=== PATIENT | male | born 1945 | race Caucasian/White ===

== ENCOUNTER → 2016-10-13 | Day surgery (SDC) | payer MEDICARE, OTHER ==
[~2016-10-13] VITALS: Ht 172.7 cm; Wt 88.5 kg
[~2016-10-13] MED LIST: ACTOS45 MG PO; ADVAIR 500/501 EA INH; ADVAIR DISKUS 11 DSK INH; ASPIR 8181 MG PO; ASPIRIN81 M1 PO; CIPRO500 MG PO; CLONIDINE0.1 MG PO; COMBIVENT1 ARO IH; DUONEB 3ML 3 MG/3 ML INH; FEXOFENADINE60 MG PO; FINASTERIDE5 MG PO; FLOMAX0.4 MG PO; HYDROCHLOROTHIA25 MG PO; KEFLEX500 MG PO; KLOR-CON20 MEQ PO; LIPITOR20 MG PO; LORATADINE10 M1 PO; MEDROL DOSEPAK4 MG PO; METFORMIN500 MG PO; METFORMIN850 MG PO; METOPROLOL50 MG PO; PERCOCET 325 MG1 TA5 PO; SIMVASTATIN40 MG PO; SYMBICORT1 AE1 INH; TERAZOSIN5 MG PO; VICODIN 5/500 505 MG PO; VITAMIN B12500 MC1 PO; VITAMIN D2000 IU PO
--- NOTE | ~2016-10-13 | O ---
[place], [place] OPERATIVE NOTE NAME: TEX JAIN UNIT #: [id number] ROOM: DOCTOR: VONNIE WELLS,[facility] BIRTHDATE: [birth year] DOS: 10/13/2016 GASTROENDOSCOPIC REPORT HISTORY OF PRESENT ILLNESS: The patient is a 71-year-old who has presented with chief complaint of colonic polyp history, undergoing investigation. ALLERGIES: ____ rectal bleed as well. PAST MEDICAL HISTORY: As well including hypercholesterolemia, diabetes mellitus, hypertension and coronary artery disease. PAST SURGICAL HISTORY: Status post CABG. SOCIAL HISTORY: Nonsmoker, nonalcohol consumer. FAMILY HISTORY: Noncontributory. PROCEDURE: Today's procedure part of investigation is colonoscopy plus polypectomy x 2, snare polypectomy at 5 cm above cecum and 1 piecemeal polypectomy with forceps biopsy at the same level. PREMEDICATION: Versed and Diprivan. SCOPE: Olympus forward-viewing colonoscope 10L video. REPORT: After putting the patient in the left lateral position and after application of lubricant to the scope, the scope was introduced. Thereafter, under direct visualization, advanced through the length of ____ without difficulty. Diverticulosis was appreciated. This was mostly concentrated in the sigmoid colon. Scope was negotiated to base of cecum. Two broad-based polyps meticulously were deeply excised with snare polypectomy and 1 polypoid lesion at the same level area with piecemeal polypectomy was biopsied. The patient extubated, tolerated the procedure, biopsied and removed. IMPRESSION: Three polypoid lesions 5 cm above cecum, status post piecemeal polypectomy x 1, status post snare polypectomy x 2, diverticulosis. PLAN AND DISCUSSION: High-fiber fruit diet, activity ad jaime with holding aspirin for 1 week, no alcohol product. Follow up routinely with you in office, p.r.n. visit with us in GI Clinic. Thank you very much indeed for your kind referral. [place], [place] OPERATIVE NOTE NAME: TEX JAIN UNIT #: [id number] ROOM: DOCTOR: [facility] BIRTH[facility]: [birth year] MICHELL SHANKAR MD CM:OPRECORD:OPERATIVE NOTE [id number] MICHELL SHANKAR MD 10/13/16 1922 interface
[2016-10-13 09:38] VITALS: BP 159/74
[2016-10-13 10:15] VITALS: BP 116/54
[2016-10-13 10:30] VITALS: BP 121/70
[2016-10-13 10:45] VITALS: BP 148/74
== END | disposition home or self-care (01) ==
LOC: SDC 10-07 10:15
DX: Z09 Encounter for follow-up examination after completed treatment for conditions other than malignant neoplasm (principal); D12.0 Benign neoplasm of cecum; K57.30 Diverticulosis of large intestine without perforation or abscess without bleeding; E78.00 Pure hypercholesterolemia, unspecified; J44.9 Chronic obstructive pulmonary disease, unspecified; I10 Essential (primary) hypertension; I25.10 Atherosclerotic heart disease of native coronary artery without angina pectoris; E11.9 Type 2 diabetes mellitus without complications; I25.2 Old myocardial infarction; N40.0 Benign prostatic hyperplasia without lower urinary tract symptoms; Z95.1 Presence of aortocoronary bypass graft; Z86.010 Personal history of colon polyps; Z88.8 Allergy status to other drugs, medicaments and biological substances

== ENCOUNTER 2018-12-26 13:34 | Inpatient (IN) | payer MEDICARE, OTHER ==
[~2018-12-26] VITALS: Ht 182.8 cm; Wt 74.9 kg
--- NOTE | ~2018-12-26 | CON ---
[place], [place] REPORT OF CONSULTATION NAME: TEX JAIN [facility] #: [id number] UNIT #: [id number] ROOM: 503 DOCTOR: LUCA GARCIA MD BIRTHDATE: [birth year] DOS: 12/28/2018 PULMONARY CONSULTATION, EVALUATION AND MANAGEMENT CONSULTATION REQUESTED BY: Declan Ross MD REASON FOR CONSULTATION: For the assessment of acute pneumonia and respiratory symptoms. HISTORY OF PRESENT ILLNESS: This is a 73-year-old male patient who has been known with history of chronic hypoxic respiratory failure, COPD, has been followed up in my office. The patient presented to the hospital and has been hospitalized on 12/26/2018 as the patient has been reported progressive severe edema of the lower extremities noted, cellulitis of the lower extremity as well as a wound was also noted on the left leg. The patient has been admitted to the hospital for further medical management. He was also admitting the symptoms of shortness of breath that occurs with exertion as well. The patient does have coughing without any sputum expectoration. Denies symptoms of chest pain or any acute hemoptysis. The patient has been assessed for deep venous thrombosis, lower extremity underwent ultrasound of lower extremity, which is noted negative for any deep venous thrombosis. REVIEW OF SYSTEMS: CONSTITUTIONAL: He reported symptoms of fatigue and tiredness, but does not have any symptoms of fever or chills. EYES: Denies burning, redness, or tenderness. EARS, NOSE, THROAT SYMPTOMS: Denies sore throat, hoarseness, otalgia, postnasal drainage or epistaxis. CARDIOVASCULAR: No angina pain, edema or pain of the lower extremities. GASTROINTESTINAL: Denies dysphagia, nausea, vomiting, diarrhea, abdominal pain, hematemesis, melena, or hematochezia. SKIN: Denies abnormal lesions or rashes except cellulitis of lower extremity with current wound, left lower extremity. MUSCULOSKELETAL SYMPTOMS: No acute joint pain, redness, or tenderness. CENTRAL NERVOUS SYSTEM: No dizziness, headache, diplopia, or syncopal episodes. Remaining systems were reviewed. They were noted all negative. PAST MEDICAL HISTORY: The patient with history of: 1. COPD. 2. Chronic hypoxic respiratory failure. 3. Sarcoidosis diagnosis was established in 10/11/2001. 4. Pulmonary nodule, mediastinal lymphadenopathy thought of related to the sarcoidosis with abnormal PET scan that was completed on 09/20/2018, has another followup CT scan of the chest completed in [facility]. 5. Permanent atrial fibrillation. 6. Aortic stenosis, status post valve replacement. 7. History of allergic rhinitis. 8. Type 2 diabetes mellitus. 9. Obesity. [place], [place] REPORT OF CONSULTATION NAME: TEX JAIN UNIT #: [id number] ROOM: [facility] DOCTOR: LUCA GARCIA MD BIRTHDATE: [birth year] 10. Hypercholesterolemia. PAST SURGICAL HISTORY: Reported: 1. Coronary artery bypass grafting. 2. Bilateral cataract lens implantation. 3. Laparoscopic cholecystectomy. 4. Wedge resection of the left lower lobe and mediastinoscopy in 09/2001, diagnosis of sarcoidosis established at that time. 5. Status post bioprosthetic aortic valve replacement. SOCIAL HISTORY: The patient is , lives at home, has 2 children. Tobacco use noted from age of [age] years old, 1 pack of cigarettes per day, discontinued in 1998. FAMILY HISTORY: Father at 60 years with complication of myocardial infarction. Mother at age of 83 years from myocardial infarction as well. CURRENT MEDICATIONS: Administered were noted use of Pulmicort Respules, lisinopril, metoprolol tartrate, simvastatin, metformin, terazosin, aspirin, Xarelto, DuoNeb q. 4 hours, clindamycin and IV Rocephin. DRUG ALLERGIES: Noted as no known drug allergies. PHYSICAL EXAMINATION: GENERAL: A 73-year-old male patient currently resting comfortably in the bed this morning of assessment. VITAL SIGNS: Height of 5 feet 7 inches, weight of 165 pounds. The BMI noted as 25.9. The intake and output in the last 24 hours, intake 1100, the output 750 mL without Tripp catheter recorded. Pulse ox saturation on 2 liters nasal cannula 96% saturation. HEENT: Examination shows head was atraumatic. Eyes nonicterus. CARDIOVASCULAR: S1, S2 audible. LUNGS: Decreased breath sounds in the lower portion of the lungs without any wheezing or crackles at this time. ABDOMEN: Soft, nontender. Bowel sounds present. EXTREMITIES: Noted with edema of the left lower extremity wrapped with bandage because of the wound. MUSCULOSKELETAL: Without acute deformities. CENTRAL NERVOUS SYSTEM: Noted intact. LABORATORY DATA: CBC that was done on 12/27/2018, WBC count normal, hemoglobin 8. The platelet count was normal. CMP that was done this morning has glucose 151, BUN 20, creatinine 1.76. Albumin 2.5. Chest x-ray that was done yesterday was noted with area of atelectasis, infiltration in the lower lung with hyperinflation changes and previous coronary artery bypass grafting, and aortic valve replacement changes. Increased interstitial marking was also noted with possibility of congestive heart failure to be considered. IMPRESSION: 1. The patient who has been currently noted with finding suggestive highly of [place], [place] REPORT OF CONSULTATION NAME: TEX JAIN UNIT #: [id number] ROOM: 503 DOCTOR: LUCA GARCIA MD BIRTHDATE: [birth year] congestive heart failure, which was noted acute whether systolic or diastolic dysfunction, unknown. 2. History of previous aortic valve, bioprosthetic valve replacement. 3. Pulmonary ____ noted in control range. The current findings were not suggestive of a clinical diagnosis of pneumonia. Possibly atelectasis, pleural fluid would be considered very likely left side rather than acute pneumonia. 4. Cellulitis of lower extremity as well noted with ____ treated with clindamycin and Rocephin and the patient has been assessed and managed by the Infectious Disease specialist for that. 5. Known history of sarcoidosis with pulmonary nodules. The patient had a CT scan of the chest that was repeated on 12/26/2018 noted bilateral multiple subcentimeter pulmonary nodules, which have been present in the lungs and some other areas. Emphysema changes were also noted on the CT scan as well with a prominent lymph node as well. These finding is highly suggestive of a diagnosis of sarcoidosis, which was noted rather than a malignant process. 6. Elevated kidney function was noted with BUN and creatinine with possibility of chronic kidney disease or superimposed acute kidney injury that cannot be excluded PLAN OF MANAGEMENT: The patient already seen by the Cardiology Service. Follow the recommendation and management of congestive heart failure. Continue with antibiotic for the medical management of the current cellulitis. Repeat another x-ray in the next couple of days to assess with resolution of the current abnormality on the chest x-ray. Continue bronchodilators, oxygen supplementation therapy, plan of management. The patient will benefit from diuretic therapy, which has not been noted on board at this time. He will be ordered Lasix 40 mg daily. Obtain the echocardiogram results if they were done also at this hospital. The patient's Lasix will be given at least on a daily basis after assessing his kidney functions. First dose of Lasix will be administered today. Thanks for allowing me to participate in the care of this patient. LUCA REHMAN MD CM:CONSTR:REPORT OF CONSULTATION 1136 12/28/18 1452 interface
--- NOTE | ~2018-12-26 | PR ---
[place], [place] PROGRESS NOTE NAME: TEX JAIN [facility] #: [id number] UNIT #: [id number] ROOM: 503 DOCTOR: LUIS LEYVA MD BIRTHDATE: [birth year] DOS: 01/07/2019 SUBJECTIVE: The patient with pneumonia, being followed by Dr. Flores. OBJECTIVE: GENERAL APPEARANCE: The patient is alert and oriented x 3, in no visible distress, except for generalized weakness and decreased breath sounds all over. VITAL SIGNS: Blood pressure 128/68, heart rate of 66 beats per minute, breathing 20 times per minute, temperature 98.4 degrees Fahrenheit. HEENT AND NECK: Exam within normal limits. CARDIOVASCULAR SYSTEM: Heart rate is regular in rate and rhythm. S1 and S2 normally audible. LUNGS: Clear to auscultation. ABDOMEN: Soft, nontender. No obvious organomegaly. Bowel sounds are present. EXTREMITIES: Without significant cyanosis or edema. IMPRESSION: 1. The patient with bilateral leg cellulitis, improved with treatment. 2. The patient's lung opacities in both lower lungs. Going for bronchoscopy with Dr. Flores tomorrow being treated with Zosyn. 3. Acute over chronic respiratory failure with acute exacerbation of chronic obstructive pulmonary disease, improved with treatment. 4. Chronic atrial fibrillation, heart rate is controlled. The patient anticoagulated with Xarelto. 5. Benign prostatic hypertrophy and urine retention, asymptomatic with treatment. 6. Acute lower back pains have resolved. 7. Corticosteroid-induced hyperglycemia, improving with stopping Solu-Medrol. 8. Acute over chronic diastolic type congestive heart failure with peripheral volume overload, improved with treatment. 9. Coronary artery disease of the [place] vessels without chest pains. 10. Nonsustained ventricular tachycardia, now resolved with Lopressor. LUIS LEYVA MD CM:PNTRANS 1807 5 LUIS LEYVA MD 01/08/195 interface
--- NOTE | ~2018-12-26 | PR ---
[place], [place] PROGRESS NOTE NAME: TEX JAIN [facility] #: [id number] UNIT #: [id number] ROOM: 503 DOCTOR: JOANIE HODGE MD BIRTHDATE: [birth year] DOS: 12/31/2018 SUBJECTIVE: The patient is looking better, does not have any new complaints. I did receive the records from [place] about his CAT scan and PET scan. OBJECTIVE: VITAL SIGNS: Blood pressure is 110/57, pulse of 68, respirations 18, temperature 98.1. LUNGS: Diminished breath sounds. A few scattered rhonchi, but much improved since yesterday. HEART: Regular. ABDOMEN: Soft. EXTREMITIES: Still about 1-2+ pitting edema with multiple blisters, some of them have opened up, but the bases appeared to be clean. ASSESSMENT AND PLAN: 1. Left lower lobe pneumonia, on IV antibiotics. 2. Chronic obstructive pulmonary disease with acute exacerbation, on IV steroids and breathing treatments. 3. Pulmonary nodule was noted on the CT scan further evaluation to be done as an outpatient. 4. Chronic kidney disease, worsening of the kidney functions noted with the diuretics, the dosage will be cut back. JOANIE HODGE MD CM:PNTRANS [phone] JOANIE HODGE MD 12/31/18 5221 interface
--- NOTE | ~2018-12-26 | EKG ---
[place], [place] ELECTROCARDIOGRAM REPORT NAME: TEX JAIN UNIT #: [id number] ROOM: 503 DOCTOR: EPIPHANY DRAFT REPORT BIRTHDATE: [birth year] [facility] Test Date: 2018-12-26 Test Time: 18:24:27 Pat Name: TEX JAIN Department: Room: 503 2 Gender: M [employer] Researcher: : 1945 Requested By: LUIS LEYVA Order Number: [id number] Reading MD: Dony Lou MD Measurements Intervals [place] Rate: 76 P: FL: QRS: -99 QRSD: 175 T: 57 QT: 472 QTc: 531 Interpretive Statements Atrial fibrillation Right bundle branch block Consider inferior infarct, old Electronically Signed On 12-27-2018 8:23:14 PDT by Dony Lou MD CM:EKGRPT:ELECTROCARDIOGRAM REPORT 1824 0823 LUIS LEYVA MD EPIPHANY DRAFT REPORT LUIS LEYVA MD
--- NOTE | ~2018-12-26 | CON ---
[place], [place] REPORT OF CONSULTATION NAME: TEX JAIN UNIT #: [id number] ROOM: 503 DOCTOR: MARY BRITO MD BIRTHDATE: [birth year] DOS: ADDENDUM This is an addendum to the consult note done by the nurse practitioner, Genevieve Acosta. I reviewed the labs and imaging and agree with the assessment and plan. Mary Brito MD CM:CONSTR:REPORT OF CONSULTATION 1455 12/30/18 0007 interface
--- NOTE | ~2018-12-26 | O ---
[place], [place] OPERATIVE NOTE [id number] UNIT #: [id number] ROOM: 503 DOCTOR: MICHELL SHANKAR MD BIRTHDATE: [birth year] DOS: 01/10/2019 GASTROENDOSCOPIC REPORT INDICATIONS: A 73-year-old patient who has presented with chief complaint of anemia, undergoing investigation. PROCEDURE: Today's procedure part of investigation is colonoscopy and 7 polypectomy with a snare. PREMEDICATION: Propofol. SCOPE: Olympus forward-viewing colonoscope 10L video. REPORT: After putting the patient in left lateral position and application of lubricant to the scope, the scope was introduced. Thereafter, under direct visualization, advanced through the length of colon without difficulty. Base of the cecum explored, appendiceal orifice identified, ileocecal valve was defined. Scope was gradually withdrawn from ascending, transverse, descending colon and hepatic flexure, 5 polypoid lesion was snared, removed, sessile in character and 2 polypoid lesions and splenic flexure, snared and removed. PLAN: High fiber diet. ACTIVITY: Ad jaime. FOLLOWUP: As an outpatient. PLAN AND DISCUSSION: We are going to withhold all the blood tests until 72 hours. Thank you very much indeed for your kind referral. MICHELL SHANKAR MD CM:OPRECORD:OPERATIVE NOTE [phone] MICHELL SHANKAR MD 01/10/19 184 interface
--- NOTE | ~2018-12-26 | PR ---
[place], [place] PROGRESS NOTE NAME: TEX JAIN [facility] #: [id number] UNIT #: [id number] ROOM: 503 DOCTOR: ORI CARLIN MD,LUCA BIRTHDATE: [birth year] DOS: 01/04/2019 SUBJECTIVE: The patient has been noted comfortable at this time, resting in the bed this morning of assessment, sitting on the side of bed this morning. He does report symptoms of some cough with small amount of sputum expectoration described to be clear. There was symptoms of hemoptysis, symptoms of shortness of breath. Acute shortness of breath at rest. Denies symptoms of chest pain, fever or chills. Edema of the lower extremity has been reported, variably resolved. OBJECTIVE: VITAL SIGNS: Normal temperature, respiratory rate 20, heart rate 73, blood pressure 112/50 reported this morning. Pulse oxygen saturation on 3 liters nasal cannula 93% saturation. HEENT: Examination shows head was atraumatic. Eyes nonicterus. NECK: Supple. CARDIOVASCULAR: S1, S2 audible. LUNGS: Minimal crackles left lower lung base. ABDOMEN: Soft, nontender. Bowel sounds present. EXTREMITIES: Edema of lower extremity was still noted. IMPRESSION: 1. The patient with possibility of pneumonia elected left lower lobe with a history of sarcoidosis. 2. Congestive heart failure, peripheral edema. 3. Cellulitis, lower extremities. PLAN OF MANAGEMENT: No changes in the plan of care at this time would be needed. Continue other therapy at this time as in progress. Supportive care. Obtain a chest x-ray to assess the progression radiologically for the current pulmonary infiltration or atelectasis. LUCA REHMAN MD CM:PNTRANS 1129 1323 LUCA CARLIN MD 01/04/19 1323 interface
--- NOTE | ~2018-12-26 | PR ---
[place], [place] PROGRESS NOTE NAME: TEX JAIN UNIT #: [id number] ROOM: 503 DOCTOR: LUCA GARCIA MD BIRTHDATE: [birth year] DOS: 01/01/2019 SUBJECTIVE: The patient has been doing very well current medical management at this time. Edema of the lower extremity still remains persistent. He does have shortness of breath, which is improving. There were no symptoms of fevers, chills, coughing or any sputum expectoration. The patient denies symptoms of nausea, vomiting; stating that he will be transferred to the custodial facility for further medical management possibly tomorrow. OBJECTIVE: GENERAL: This morning, the patient noted comfortable at this time, sitting on the side of the bed. VITAL SIGNS: Normal temperature, respiratory rate 18, heart rate 69, blood pressure 112/46 recorded. Pulse ox saturation on 3 liters nasal cannula 99% saturation recorded. HEAD, EYES, EARS, NOSE, AND THROAT: Examination shows head was atraumatic. Eyes nonicterus. NECK: Supple. CARDIOVASCULAR SYSTEM: S1, S2 audible. LUNGS: Noted without any wheeze or crackles at the present time. The breaths are noted diminished lower portion of the lungs bilaterally. ABDOMEN: Soft, nontender. Bowel sounds present. EXTREMITIES: With edema and the wound of the left lower extremity. LABORATORY DATA: Culture of the sputum, no bacterial growth from the of this month. CMP yesterday was noted with BUN of 36 and creatinine 1.65. IMPRESSION: 1. The patient with history of sarcoidosis, bilateral pulmonary nodules, which were monitored as an outpatient. 2. Infection of the lower extremities, wound infection. 3. Improving acute kidney injury as well. 4. Acute congestive heart failure was also noted, which is improving clinically. PLAN OF MANAGEMENT: No changes from the pulmonary standpoint at this time. Continue the patient's current therapy, plan of management as in progress, other care, plan of management and therapies. Usual care. [place], [place] PROGRESS NOTE NAME: TEX JAIN UNIT #: [id number] ROOM: 503 DOCTOR: LUCA GARCIA MD BIRTHDATE: [birth year] LUCA REHMAN MD CM:PNTRANS [phone] LUCA CARLIN MD 01/01/19 1715 interface
--- NOTE | ~2018-12-26 | PR ---
[place], [place] PROGRESS NOTE NAME: TEX JAIN UNIT #: [id number] ROOM: 503 DOCTOR: LUIS LEYVA MD BIRTHDATE: [birth year] DOS: 12/29/2018 SUBJECTIVE: The patient continues to improve. His breathing is improving despite of his severe underlying chronic obstructive pulmonary disease and leg swelling is also improving with treatment. OBJECTIVE: VITAL SIGNS: Blood pressure 101/65, heart rate ranging between 60-70 beats per minute, temperature 98.2 degrees Fahrenheit. GENERAL APPEARANCE: The patient is alert and oriented x 3, in no visible distress. HEENT AND NECK: Exam within normal limits. CARDIOVASCULAR SYSTEM: Heart rate is regular in rate and rhythm. S1 and S2 normally audible. LUNGS: Clear to auscultation. ABDOMEN: Soft, nontender. No obvious organomegaly. Bowel sounds are present. EXTREMITIES: Without significant cyanosis or edema. Left leg swelling which is improving with treatment. IMPRESSION: 1. Left leg cellulitis and edema, swelling and infection. All being treated with clindamycin and ceftriaxone, ID specialist following. Swelling is improving with leg elevation and antibiotic treatment. 2. Acute exacerbation of severe end-stage chronic obstructive pulmonary disease with purulent sputum being treated with antibiotics, corticosteroids, bronchodilators, and gradually improving. Dr. Flores, the ballast regulator operator, is following him. 3. The patient with coronary artery disease of [place] vessels and coronary artery bypass graft and aortic valve replacement, remains chest pain free. 4. Benign prostatic hypertrophy and urine retention treated with Hytrin and Proscar. 5. History of hypertension. Blood pressure medicine stopped because of hypotension. [place], [place] PROGRESS NOTE NAME: TEX JAIN UNIT #: [id number] ROOM: 503 DOCTOR: LUIS LEYVA MD BIRTHDATE: [birth year] LUIS LEYVA MD CM:PNTRANS [phone] LUIS LEYVA MD 12/29/182148 interface
--- NOTE | ~2018-12-26 | PR ---
[place], [place] PROGRESS NOTE NAME: TEX JAIN UNIT #: [id number] ROOM: 503 DOCTOR: LUIS LEYVA MD BIRTHDATE: [birth year] DOS: 01/05/2019 PROGRESS NOTE SUBJECTIVE: The patient's breathing is improving, so as his swelling in his feet. OBJECTIVE: GENERAL APPEARANCE: The patient is alert and oriented x 3, in no visible distress. VITAL SIGNS: Blood pressure 104/60, heart rate 81 beats per minute, breathing 18 times per minute, temperature 98.2 and going up to 99.2 degrees Fahrenheit. LUNGS: Decreased breath sounds. The patient is wearing oxygen. HEENT AND NECK: Exam within normal limits. CARDIOVASCULAR SYSTEM: Heart rate is regular in rate and rhythm. S1 and S2 normally audible. ABDOMEN: Soft, nontender. No obvious organomegaly. Bowel sounds are present. EXTREMITIES: 1-2+ pedal edema. IMPRESSION: 1. The patient has acute exacerbation of chronic obstructive pulmonary disease, significantly improved with treatment. 2. The patient with nonsustained ventricular tachycardia, being followed by Cardiology. He is status post echocardiogram with normal left ventricular ejection fraction as well as cardiac stress testing, which was normal. 3. Acute over chronic diastolic type congestive heart failure with peripheral volume overload. The patient diuresed and peripheral volume overload and CHF has improved. 4. Coronary artery disease of [place] vessels without chest pains. 5. Chronic atrial fibrillation. The patient is anticoagulated with Xarelto. Heart rates are controlled. 6. Bilateral leg cellulitis, improving with treatment. 7. Benign prostatic hypertrophy and urine retention, chronic asymptomatic with treatment. 8. The patient's lower back pains have improved. Nephrology evaluated him. He felt he was having kidney pain. Urine cultures are negative. Urinalysis showed 21-30 rbc's. [place], [place] PROGRESS NOTE NAME: TEX JAIN Mirella UNIT #: [id number] ROOM: 503 DOCTOR: LUIS LEYVA MD BIRTHDATE: [birth year] LUIS LEYVA MD CM:PNLEROY [id number] LUIS LEYVA MD 01/06/19 0200 interface
--- NOTE | ~2018-12-26 | PR ---
[place], [place] PROGRESS NOTE NAME: TEX JAIN UNIT #: [id number] ROOM: [facility] DOCTOR: ORI CARLIN MD,LUCA BIRTHDATE: [birth year] DOS: 12/29/2018 SUBJECTIVE: He has been resting comfortably, sitting on the side of bed this morning. His spouse was also present in the room with the patient. The patient denies symptoms of fever or chills. Denies symptoms of hemoptysis. Denies symptoms of nausea or vomiting. The patient has not been noted symptoms of hematemesis or melena. Denies symptoms of headache or diplopia. The lower extremity edema was resolving, currently wrapped with elastic bandage. Remaining systems were reviewed and they were noted all negative. PHYSICAL EXAMINATION: GENERAL: The patient comfortably sitting resting on the bed. VITAL SIGNS: Recorded blood pressure 96/58. The respiratory rate of 22, heart rate of 73, temperature normal. Pulse oxygen saturation on 3 liters nasal cannula 98% saturation recorded. HEENT: Examination shows head was atraumatic. Eyes nonicterus. NECK: Supple. CARDIOVASCULAR: S1, S2 is audible. LUNGS: Noted with improving the air entry of the lung bilaterally. ABDOMEN: Soft, nontender. EXTREMITIES: The patient noted with edema of the lower extremity, currently has elastic bandage in place. MUSCULOSKELETAL: Without acute deformities. CENTRAL NERVOUS SYSTEM: Intact. LABORATORY DATA: Chest x-ray that was done this morning showed reduction finding of congestive heart failure with improvement in the aeration of the lung bilaterally with small infiltration atelectasis with pleural fluid still remains. IMPRESSION: 1. The patient will be currently treated for acute congestive heart failure at the present time. 2. The patient with sarcoidosis and pulmonary nodule as well, which has been monitored as an outpatient. 3. Resolving acute kidney injury as well. PLAN OF MANAGEMENT: Additional dose of Lasix will be administered. Continue antibiotic patient's cellulitis and possibility of left lower lobe pneumonia not convincing finding. Other therapy, plan of management. Additional treatment changes will be ordered based on the progression of his illness. Assessment and management including finding of the CT scan of the chest were also discussed with the patient's spouse at the bedside today. [place], [place] PROGRESS NOTE NAME: TEX JAIN UNIT #: [id number] ROOM: [facility] DOCTOR: LUCA GARCIA MD BIRTHDATE: [birth year] LUCA REHMAN MD CM:PNTRANS [id number] LUCA CARLIN MD 12/29/18 1515 interface
--- NOTE | ~2018-12-26 | CON ---
[place], [place] REPORT OF CONSULTATION NAME: TEX JAIN [facility] #: [id number] UNIT #: [id number] ROOM: 503 DOCTOR: MARIBELL CISNEROS MD BIRTHDATE: [birth year] DOS: 12/27/2018 HISTORY OF PRESENT ILLNESS: This is a 73-year-old -[place] man with a history of coronary artery disease and aortic stenosis in 2007, he had a bioprosthetic aortic valve and a single vein graft done at that time. His LV systolic function had been normal. He was admitted to the hospital a few days ago because of marked swelling of the legs, particularly the left one. While on vacation a week ago, he developed more swelling and redness and blisters on the left lower part of the leg. He actually broke the blisters. He had some chills and was admitted here now for treatment of the same. He had no fever, but had chills. He has not had any weakness or dizziness. There has not been any PND, orthopnea or any palpitation. He has not had any loss of consciousness. PAST MEDICAL HISTORY: Includes COPD and chronic hypoxic respiratory failure, sarcoidosis, morbid obesity, type 2 diabetes mellitus, coronary artery disease and aortic valve stenosis as mentioned above, hyperlipidemia. He had 3 lung nodules excised very long time ago. He has had cholecystectomy. PHYSICAL EXAMINATION: GENERAL: Reveals a patient who is alert, oriented, sitting in a chair, getting his aerosol treatment. He looks a little pale. He is not cyanotic nor jaundiced and is not tachypneic. VITAL SIGNS: Temperature is 98.2 degrees. There is no thyromegaly or finger clubbing. Pulse is 76 irregular, blood pressure 140/58. NECK: JVP is normal. There is no carotid bruit. HEART: There is no cardiomegaly. Cardiac auscultation reveals normal aortic component of the second heart sound and there is grade 2/6 early peaking systolic murmur over the aortic area. EXTREMITIES: He has 3+ left pedal edema and 1-2+ right pedal edema and his legs are dressed. RESPIRATORY: Breath sounds are at least moderately diminished bilaterally with crackles and rhonchi. ABDOMEN: Large, supple. LABORATORY DATA: ECG done on the showed atrial fibrillation with complete right bundle branch block and left anterior hemiblock. There is no infarction and the monitor continues to show atrial fibrillation with controlled ventricular rate. Chest x-ray did not show any pulmonary edema. Hemoglobin 8 g/dL, WBC 7.9 and potassium of 3.6, sodium 142, BUN 20, creatinine 1.76. IMPRESSION: 1. This patient has atrial fibrillation with controlled ventricular rate. This appears to be a new diagnosis. He is not on any anticoagulation. [place], [place] REPORT OF CONSULTATION NAME: TEX JAIN UNIT #: [id number] ROOM: [facility] DOCTOR: MARIBELL CISNEROS MD BIRTHDATE: [birth year] 2. Status post aortic valve replacement with a bioprosthetic valve. This is functioning normally. 3. Coronary artery disease. This is asymptomatic. 4. Cellulitis of the left leg being treated. RECOMMENDATIONS: 1. The patient needs anticoagulation. Therefore, Xarelto 15 mg daily will be started on low dose because of the patient's acute renal insufficiency. 2. The patient should also be on RAMA inhibitor. I think if possible clonidine should be discontinued and by increasing the dose of lisinopril to control blood pressure adequately. Unless creatinine is way above 2, I think the use of RAMA inhibitor is beneficial in this patient. 3. An echocardiogram should be done to assess LV systolic function. I thank you for this consult. MARIBELL CISNEROS MD CM:CONSTR:REPORT OF CONSULTATION 1243 12/28/18 0205 interface
--- NOTE | ~2018-12-26 | PR ---
[place], [place] [facility]GR[id number] UNIT #: [id number] ROOM: 503 DOCTOR: ORI CARLIN MD,LUCA BIRTHDATE: [birth year] DOS: 01/05/2019 PULMONARY PROGRESS NOTE SUBJECTIVE: He has been noted increased chest congestion, coughing, which was producing sputum intermittently. Denies symptoms of chest pain or hemoptysis. Shortness of breath noted with exertion. There were no symptoms of hemoptysis reported. The patient was noted with edema of the lower extremity seemed to be somewhat decreased from previous examination. Denies symptoms of headache, or diplopia. Remaining review of systems was completed, they were noted negative. PHYSICAL EXAMINATION: GENERAL: The patient is resting comfortably, sitting on the side of the bed this morning of assessment. VITAL SIGNS: For the patient recorded normal temperature of 99.2 degree Fahrenheit, respiratory rate is 18-16, heart rate 99, and blood pressure 112/55. The pulse oxygen saturation noted on 2 liters nasal cannula 94% saturation. HEENT: Examination shows head was atraumatic. Eyes nonicterus. NECK: Supple. CARDIOVASCULAR: S1, S2 audible. LUNGS: Noted without any wheezing or crackles at this time ____. Decreased breath sounds noted with occasional crackles. There was no wheezing. ABDOMEN: Soft, nontender. EXTREMITIES: Still shows edema, which was not completely resolved. LABORATORY DATA: The chest x-ray that was completed yesterday was noted basilar area of infiltration with associated pleural fluid was noted, which is a new finding as compared with the previous chest x-ray. IMPRESSION: 1. The patient with possibility of developing acute new pneumonia cannot be completely excluded with current worsening the coughing, increased sputum expectoration, current chest x-ray assessment. 2. History of known sarcoidosis. 3. Cellulitis of the lower extremities resolving, currently treated with Omnicef per recommendation of Infectious Disease specialist. PLAN OF MANAGEMENT: The patient has been ordered blood cultures and sputum culture. Infectious Disease Services will be contacted ____ about adjusting antibiotic since we already treating the patient other infections. Supportive therapy, plan of management, and additional treatment changes will be made based on progression of the illness and available any new data results. [place], [place] PROGRESS NOTE NAME: TEX JAIN UNIT #: [id number] ROOM: 503 DOCTOR: LUCA GARCIA MD BIRTHDATE: [birth year] LUCA REHMAN MD CM:SAM [id number] LUCA CARLIN MD 01/05/19 1844 interface
--- NOTE | ~2018-12-26 | PR ---
[place], [place] [facility]GR[id number] UNIT #: [id number] ROOM: 503 DOCTOR: LUIS LEYVA MD BIRTHDATE: [birth year] DOS: 12/28/2018 SUBJECTIVE: Patient was seen yesterday for shortness of breath and leg cellulitis, improving. PHYSICAL EXAMINATION: VITAL SIGNS: Blood pressure 100/58, heart rate 78 beats per minute, breathing 20 times per minute, temperature 98.2 degrees Fahrenheit. GENERAL APPEARANCE: The patient is alert and oriented x 3, in no visible distress. Generalized weakness. HEENT AND NECK: Exam within normal limits. CARDIOVASCULAR SYSTEM: Heart rate is regular in rate and rhythm. S1 and S2 normally audible. LUNGS: Clear to auscultation. Decreased breath sounds all over. ABDOMEN: Soft, nontender. No obvious organomegaly. Bowel sounds are present. EXTREMITIES: Without significant cyanosis or edema. Improving left and right leg swelling. IMPRESSION AND PLAN: 1. Significant bilateral left more than right leg swelling and cellulitis, which is being treated with antibiotics and clinically improving. 2. Acute exacerbation of chronic obstructive pulmonary disease, improving with treatment, bronchodilators, corticosteroids, oxygen, antibiotic. 3. Coronary artery disease of the [place] vessels without chest pains. 4. Type 2 diabetes mellitus. Blood sugars being monitored and treated. 5. Benign prostatic hypertrophy and urinary retention, asymptomatic with treatment. LUIS LEYVA MD CM:PNTRANS [phone] LUIS LEYVA MD 12/29/182150 interface
--- NOTE | ~2018-12-26 | PR ---
[place], [place] PROGRESS NOTE NAME: TEX JAIN [facility] #: [id number] UNIT #: [id number] ROOM: 503 DOCTOR: CALIXTO ZHANG BIRTHDATE: [birth year] DOS: 01/09/2019 CARDIOLOGY PROGRESS NOTE The patient is being seen in followup for new onset atrial fibrillation, diastolic heart failure. SUBJECTIVE: The patient apparently had a significant episode of epistaxis earlier this morning that eventually was stopped with pressure. Denies chest pain or shortness of breath. It looks like he is being planned for endoscopy tomorrow. Rivaroxaban on hold since, last dose Tuesday and aspirin, last dose was yesterday. OBJECTIVE: VITAL SIGNS: Afebrile, pulse 69, respirations 16, blood pressure 122/64, saturating 95% on 3 liters nasal cannula. GENERAL APPEARANCE: Older gentleman, sitting up in bed, in no distress. NECK: Supple. JVP appears normal. No carotid bruits. RESPIRATORY: Diffuse expiratory wheezing. CARDIOVASCULAR: Irregular rhythm with a normal rate. Soft systolic murmur at the apex. ABDOMEN: Positive bowel sounds. Soft, nontender. EXTREMITIES: 2-3+ pitting edema bilateral lower extremities. LABORATORY DATA: Hemoglobin today 8.5. No chemistries performed today. CURRENT CARDIAC MEDICATIONS: Include isosorbide mononitrate 30 mg daily, metoprolol succinate 12.5 mg b.i.d., simvastatin 40 mg daily. Echocardiogram on this admission showed normal LVEF of 65% with moderate LVH, with a mildly hypokinetic and dilated right ventricle. Bioprosthetic aortic valve noted. ASSESSMENT: 1. Csjsk-ws-mvzkzlk diastolic congestive heart failure, remains volume overloaded. Diuretics have been on hold because of worsening renal function. 2. Anemia, suspected acute blood loss, was started on rivaroxaban this admission, GI evaluation pending, endoscopy tomorrow. 3. Newly diagnosed with atrial fibrillation of unknown duration, appears persistent. He is rate controlled with blockers. Anticoagulation is now being held. 4. Coronary artery disease, status post single-vessel bypass in 2007 along with bioprosthetic aortic valve replacement. 5. Acute kidney injury/chronic kidney disease. 6. Diabetes. RECOMMENDATIONS: 1. Await outcome of a GI evaluation. Continue to hold antithrombotic and antiplatelet agents. Continue with his other current cardiac medications. 2. I have ordered a metabolic panel for today and hope to resume diuretics [place], [place] PROGRESS NOTE NAME: TEX JAIN UNIT #: [id number] ROOM: [facility] DOCTOR: CALIXTO ZHANG BIRTHDATE: [birth year] later today depending on his renal function, but clearly he is still volume overloaded. Dr. CALIXTO ZHANG MD CM:PNTRANS [id number] CALIXTO ZHANG 01/09/19 2348 interface
--- NOTE | ~2018-12-26 | PR ---
[place], [place] PROGRESS NOTE [id number] UNIT #: [id number] ROOM: 503 DOCTOR: ORI CARLIN MD,LUCA BIRTHDATE: [birth year] DOS: 01/02/2019 PULMONARY PROGRESS NOTE SUBJECTIVE: The patient has been noted comfortable at this time, resting in the bed this morning of assessment, has not been reported any symptoms of chest pain, fever or chills. The edema of the lower extremities remains persistent without any changes. He has been comfortably resting this morning of assessment. VITAL SIGNS: Normal temperature, respiratory rate 18, heart rate 80, blood pressure 110/60. Pulse oxygen saturation recorded on 3 liters nasal cannula 99% saturation. HEENT: Examination shows head was atraumatic. Eyes nonicterus. NECK: Supple. CARDIOVASCULAR: S1, S2 audible. LUNGS: Clear to auscultation bilaterally. ABDOMEN: Soft, nontender. Bowel sounds present. EXTREMITIES: Noted edema. IMPRESSION: 1. Acute congestive heart failure was noted with history of sarcoidosis with pulmonary nodules. 2. Rslux-rn-zarnuqe kidney disease, which has noted partially improved. PLAN OF MANAGEMENT: No change in pulmonary standpoint. Discharge planning per primary care physician. Continue other therapy, plan of management as ongoing with usual care. LUCA REHMAN MD CM:PNTRANS [phone] LUCA CARLIN MD 01/02/192100 interface
--- NOTE | ~2018-12-26 | PR ---
[place], [place] PROGRESS NOTE [id number] #: [id number] ROOM: 503 DOCTOR: LUIS LEYVA MD BIRTHDATE: [birth year] DOS: 01/04/2019 SUBJECTIVE: The patient's breathing continues to improve. OBJECTIVE: GENERAL APPEARANCE: The patient is alert and oriented x 3, in no visible distress. VITAL SIGNS: Blood pressure 102/50, heart rate of 73 beats per minute, breathing 20 times per minute, temperature 98.6 degrees Fahrenheit. HEENT AND NECK: Exam within normal limits. CARDIOVASCULAR SYSTEM: Heart rate is regular in rate and rhythm. S1 and S2 normally audible. LUNGS: Decreased breath sounds all over. ABDOMEN: Soft, nontender. No obvious organomegaly. Bowel sounds are present. EXTREMITIES: Without significant cyanosis or edema. IMPRESSION: 1. The patient with recurrent ventricular tachycardia given magnesium, metoprolol and is undergoing cardiac stress testing today. 2. Acute exacerbation of severe underlying chronic obstructive pulmonary disease and acute over chronic respiratory failure, improving with treatment. 3. Continued kidney pains. The patient was seen by Nephrology. Basic metabolic profile is being performed, renal ultrasound did not show any acute abnormality. 4. Benign prostatic hypertrophy and urine retention, asymptomatic with treatment. 5. Bilateral leg cellulitis, improving with treatment. 6. Urinary electrolytes pending today. LUIS LEYVA MD CM:PNTRANS [id number] [id number] LUIS LEYVA MD 01/05/19 0301 interface
--- NOTE | ~2018-12-26 | PR ---
[place], [place] PROGRESS NOTE [facility]AIN [id number] UNIT #: [id number] ROOM: 503 DOCTOR: ORI CARLIN MD,LUCA BIRTHDATE: [birth year] DOS: 01/11/2019 SUBJECTIVE: The patient was noted comfortable at this time, resting on the bed, underwent a colonoscopy yesterday with several polyps were removed. Denies symptoms of chest pain, coughing or shortness of breath. PHYSICAL EXAMINATION: VITAL SIGNS: Normal temperature, respiratory rate 18, heart rate 87, blood pressure 126/70 recorded this morning. Pulse ox saturation on 3 liters nasal cannula 98% saturation recorded. HEENT: No new change. NECK: Supple. CARDIOVASCULAR: S1, S2 audible. LUNGS: Without any wheeze or crackles. ABDOMEN: Soft, nontender. Bowel sounds present. EXTREMITIES: No new change. IMPRESSION: 1. Resolving acute pneumonia, Pseudomonas aeruginosa improving acute exacerbation of chronic obstructive pulmonary disease. 2. Resolving cellulitis of lower extremity. 3. Anemia status with GI workup and blood transfusions. PLAN OF MANAGEMENT: No change in plan of management was recommended today. Discharge planning per primary care physician, Dr. Ross. LUCA REHMAN MD CM:PNTRANS 31 [phone] LUCA CARLIN MD 01/11/191929 interface
--- NOTE | ~2018-12-26 | PR ---
[place], [place] PROGRESS NOTE [id number] #: [id number] ROOM: 503 DOCTOR: ORI CARLIN MD,LUCA BIRTHDATE: [birth year] DOS: 01/09/2019 SUBJECTIVE: The patient has been noted comfortable at this time, resting on the bed. He was planned for colonoscopy. The workup done shows current possibility of acute GI bleeding, stool for occult blood was noted as positive. OBJECTIVE: VITAL SIGNS: For the patient this morning, normal temperature, respiratory rate 60-69, blood pressure 122/64. Pulse ox saturation on 3 liters nasal cannula 98% saturation recorded. The patient is currently comfortably, sitting on the side of the bed. HEENT: No acute change. NECK: Supple. CARDIOVASCULAR: S1, S2 is audible. LUNGS: The patient noted without any wheeze or crackles. ABDOMEN: Soft, nontender. Bowel sounds present. EXTREMITIES: No acute change. IMPRESSION: Stable respiratory status was noted at the present time with resolving acute pneumonia, Pseudomonas aeruginosa. Anemia, possibly GI bleeding. Workup is in progress. PLAN OF MANAGEMENT: No changes in plan of care at this time. Continue the patient's current therapy as in progress, other care, plan of management and treatments. LUCA REHMAN MD CM:PNTRANS [phone] LUCA CARLIN MD 01/09/19 1305 interface
--- NOTE | ~2018-12-26 | WRIGHTHP ---
[place], [place] PATIENT HISTORY AND PHYSICAL EXAM NAME: TEX JAIN [facility] #: [id number] UNIT #: [id number] ROOM: 503 DOCTOR: LUIS LEYVA MD BIRTHDATE: [birth year] DOS: 12/26/2018 HISTORY OF PRESENT ILLNESS: The patient presented to my office with severe swelling in his leg redness, warmth and pain along with increased shortness of breath, cough and sputum. The patient is admitted for acute exacerbation of COPD and severe cellulitis to rule out for DVT thrombosis involving both legs, but more on the left side. The patient admitted and started on treatment with IV Rocephin. ID consult was obtained and a surgical consult was obtained. The patient's swelling has significantly improved with treatment with antibiotic and leg elevation, and DVT was negative. No chest pain, no dizziness or fainting episodes. No other GI or urinary symptoms. PAST MEDICAL HISTORY: 1. Severe underlying COPD with chronic respiratory failure and oxygen dependence. 2. BPH and urinary retention. 3. Diabetic nephropathy, chronic kidney disease stage 3. 4. Type 2 diabetes mellitus. 5. Coronary artery disease of the [place] vessel and coronary artery bypass graft with aortic valve replacement. 6. Chronic lower back pains, lumbar spondylosis and spinal stenosis. 7. Advanced end-stage COPD. SYSTEMS REVIEW: RESPIRATORY: Increasing shortness of breath and cough with sputum. GASTROINTESTINAL: No nausea, vomiting, diarrhea, constipation. CARDIOVASCULAR: No chest pains or palpitations. FAMILY HISTORY: Noncontributory. HOME MEDICATIONS: Simvastatin, metformin, terazosin, metoprolol, aspirin, Xarelto and Advair. ALLERGIES: To TAPE. PHYSICAL EXAMINATION: GENERAL APPEARANCE: The patient is alert and oriented x 3, quite weak and short of breath, but in no visible distress. HEENT AND NECK: Extraocular movements are intact. Sclerae are anicteric. Oral mucosa is moist and clean. No obvious facial weakness. Neck is supple without any lymphadenopathy. No thyromegaly. No JVD. No carotid arterial bruits. LUNGS: No rhonchi. Decreased breath sounds in the lungs all over with some expiratory wheezing. The patient is wearing oxygen. CARDIOVASCULAR SYSTEM: Heart rate is regular in rate and rhythm. S1 and S2 normally audible. No significant murmur or any other abnormal cardiac sounds. ABDOMEN: Soft, nontender. No obvious organomegaly. Bowel sounds are present. No obvious herniation. EXTREMITIES: Without significant cyanosis. Warm to touch. Severe 5+ left leg [place], [place] PATIENT HISTORY AND PHYSICAL EXAM NAME: TEX JAIN [facility] #: [id number] UNIT #: [id number] ROOM: [facility] DOCTOR: LUIS LEYVA MD BIRTHDATE: [birth year] edema with redness and warmth and superficial skin ulceration, also some ankle edema on the right side with slight warmth and redness. CENTRAL NERVOUS SYSTEM: Alert and oriented x 3. Cranial nerves II-XII are intact. Speech is normal. The patient is able to move all extremities. Normal muscle strength. Deep tendon reflexes are equal on both sides. Plantars were downgoing. LABORATORY DATA: Venous Dopplers of the left leg negative for DVT. Hemoglobin 8, blood sugar 251, creatinine 1.76, albumin low at 2.5. IMPRESSION: 1. Acute exacerbation of chronic obstructive pulmonary disease, to be checked for sputum cultures, treated with antibiotic, oxygen and breathing treatments. Pulse ox to be maintained between 90% and 96%. 2. Acute cellulitis and swelling in the left lower extremity and slightly at the right ankle, being treated with IV Rocephin and leg elevation, significantly improving. Surgical and ID consults were obtained and they agree with the treatment. 3. Type 2 diabetes mellitus. Blood sugars to be monitored, treated and the patient to be kept on a no-concentrated sweet diet. 4. Afyonqqv-dj-nsqvea protein-calorie malnutrition. We will take bedsore precautions. The patient to work with Dietary. 5. History of coronary artery disease of the [place] vessels without chest pain. 6. Chronic lower back pain, spinal stenosis and lumbar spondylosis, treated with opioids which keeps the patient more functional. 7. Diabetic nephropathy and chronic kidney disease stage 3, to be monitored. LUIS LEYVA MD CM:HISPHYS:PATIENT HISTORY AND PHYSICAL EXAMINATION [id number] LUIS LEYVA MD 12/27/18 1320 interface
--- NOTE | ~2018-12-26 | EKG ---
[place], [place] ELECTROCARDIOGRAM REPORT NAME: TEX JAIN UNIT #: [id number] ROOM: 503 DOCTOR: EPIPHANY DRAFT REPORT BIRTHDATE: [birth year] [facility] Test Date: 2019-01-02 Test Time: 20:38:09 Pat Name: TEX JAIN Department: Room: 503 2 Gender: M Arm Maker: : 1945 Requested By: LUIS LEYVA Order Number: [id number] Reading MD: Any Steiner MD Measurements Intervals [place] Rate: 53 P: 115 [place]: 66 QRS: -95 QRSD: 175 T: 56 QT: 444 QTc: 417 Interpretive Statements Atrial Fibrillation with slow ventricular rate Right bundle branch block Compared to ECG 12/26/2018 18:24:27 Short [place] interval now present Atrial fibrillation is still present Myocardial infarct finding no longer present Electronically Signed On 01-08-2019 7:45:14 PDT by Any Steiner MD CM:EKGRPT:ELECTROCARDIOGRAM REPORT [id number] LUIS LEYVA MD EPIPHANY DRAFT REPORT LUIS LEYVA MD
--- NOTE | ~2018-12-26 | PR ---
[place], [place] [facility]GRESS [id number] UN[facility] #: [id number] ROOM: 503 DOCTOR: JOANIE HODGE MD BIRTHDATE: [birth year] DOS: SUBJECTIVE: The patient is feeling much better this morning. His cough and shortness of breath has improved. OBJECTIVE: VITAL SIGNS: Graphic trend shows a pressure 110/54, pulse of 64, respirations 18, temperature 98.1. LUNGS: Clear. HEART: Regular. ABDOMEN: Obese. EXTREMITIES: Still about 3+ pitting edema bilaterally with some minimal redness in the left leg, which is again improved from admission. LABORATORY DATA: This morning, none available. ASSESSMENT AND PLAN: 1. Acute exacerbation of chronic obstructive pulmonary disease, on IV steroids, breathing treatments. 2. Chronic respiratory failure, oxygen dependent. 3. Adult failure to thrive, awaiting placement to [place]. Social service has been consulted. 4. Chronic atrial fibrillation, controlled on long-term use of anticoagulants. Dr. Steiner is following. Echocardiogram is pending. 4. Cellulitis of the legs, which improved. 5. Deep venous thrombosis was ruled out. 6. Pulmonary nodule still getting worked up. Dr. Flores is seeing him. 7. Type 2 diabetes mellitus. Blood sugars in the 300s because of steroids. We will make adjustments in medications. If the echocardiogram is normal, should consider Unna boot. JOANIE HODGE MD CM:PNTRANS [id number] JOANIE HODGE MD 01/01/19 0950 interface
--- NOTE | ~2018-12-26 | PR ---
[place], [place] PROGRESS NOTE NAME: TEX JAIN [facility] #: [id number] UNIT #: [id number] ROOM: 503 DOCTOR: ORI CARLIN MD,LUCA BIRTHDATE: [birth year] DOS: 01/10/2019 PULMONARY PROGRESS NOTE SUBJECTIVE: The patient noted comfortable at this time, resting in the bed this morning. The patient was planned for the workup for the GI bleeding with colonoscopy to be done today. Not reporting any ongoing symptoms of chest pain, coughing, fever or sputum expectoration. OBJECTIVE: VITAL SIGNS: Normal temperature, respiratory rate 16, heart rate 74, blood pressure 124/69. Pulse oxygen saturation on 3 liters nasal cannula 91% saturation. HEENT: No new change. NECK: Supple. CARDIOVASCULAR: S1, S2 audible. LUNGS: Noted clear wheezing bilaterally. ABDOMEN: Soft, nontender. Bowel sounds present. EXTREMITIES: Without any acute change. IMPRESSION: 1. The patient with resolving acute Pseudomonas aeruginosa pneumonia and tracheobronchitis gradually and progressively. 2. Resolving cellulitis of lower extremity. 3. Gastrointestinal bleeding, which has been investigated. PLAN OF MANAGEMENT: No changes in the plan of treatment. Continue antibiotics, bronchodilators, and other plan of management as in progress. Usual care, other supportive plan for treatment and therapies. LUCA REHMAN MD CM:PNTRANS [id number] LUCA CARLIN MD 01/10/19 1400 interface
--- NOTE | ~2018-12-26 | PR ---
[place], [place] PROGRESS NOTE NAME: TEX JAIN UNIT #: [id number] ROOM: 503 DOCTOR: LUCA GARCIA MD BIRTHDATE: [birth year] DOS: 01/08/2019 PULMONARY PROGRESS NOTE SUBJECTIVE: The patient was noted comfortable at this time, resting in the bed this morning of assessment. He has been noted reduction in the cough, gradually progressive edema of lower extremity has been slowly resolving, but not noted completely resolved. Continue intravenous antibiotic with Pseudomonas aeruginosa. Denies symptoms of fever or chills. The fatigue has been decreasing. Remaining systems were reviewed. They were noted all negative. OBJECTIVE: VITAL SIGNS: Normal temperature, respiratory rate 20, heart rate of 78, blood pressure 126/82. The pulse oxygen saturation on 3 liters nasal cannula was 98% saturation. HEENT: Examination shows head was atraumatic. Eyes nonicterus. NECK: Supple. CARDIOVASCULAR: S1, S2 is audible. LUNGS: Noted without any wheezing at the present time. No crackles are present. ABDOMEN: Soft, nontender. Bowel sounds present. EXTREMITIES: Noted without any new changes, cellulitis, edema in lower extremity is resolving. MUSCULOSKELETAL: Without acute deformities. CENTRAL NERVOUS SYSTEM: Intact. VISIBLE SKIN: No acute lesions or rashes noted except cellulitis of lower extremity, which has been already treated. LABORATORY DATA: CBC today, hemoglobin 7.1, hematocrit 22.6, WBC count normal, platelet count normal. PTT this morning was normal. Chest x-ray done this morning reviewed, resolving pulmonary infiltration on the lower lungs. BMP this morning, BUN 30, creatinine 1.63, glucose 318. IMPRESSION: 1. Resolving acute tracheobronchitis and/or pneumonia with Pseudomonas aeruginosa clinically and radiologically. 2. Anemia, currently being treated with blood transfusion received 1 packed RBC yesterday and will be getting another transfusion today. 3. Stable chronic kidney disease as well. PLAN OF MANAGEMENT: Continue antibiotic as IV Zosyn. Continue bronchodilator. Continue medical management of cellulitis. Continue blood transfusion and the assessment of anemia. [place], [place] PROGRESS NOTE NAME: TEX JAIN UNIT #: [id number] ROOM: 503 DOCTOR: LUCA GARCIA MD BIRTHDATE: [birth year] LUCA REHMAN MD CM:SAM [id number] LUCA CARLIN MD 01/08/19 1513 interface
--- NOTE | ~2018-12-26 | PR ---
[place], [place] PROGRESS NOTE NAME: TEX JAIN [facility] #: [id number] UNIT #: [id number] ROOM: 503 DOCTOR: CALIXTO ZHANG BIRTHDATE: [birth year] DOS: 01/11/2019 The patient is being seen in followup for new onset atrial fibrillation and diastolic heart failure. SUBJECTIVE: The patient underwent a colonoscopy yesterday, which revealed multiple polyps, which were resected. He is being discharged today. He feels well. Denies any chest pain. His breathing is at baseline. Still has some lower extremity edema, which is improving, remains in rate controlled atrial fibrillation on the monitor. OBJECTIVE: VITAL SIGNS: Afebrile, pulse 87, respirations 18, blood pressure 126/70, saturating 97% on 3 liters nasal cannula. GENERAL APPEARANCE: An older male getting his clothes on and getting to ready to rounds. NECK: Supple. JVP appears normal in the appropriate position. No carotid bruits. RESPIRATORY: Diminished with a few basilar rales. CARDIOVASCULAR: Irregular rhythm with a normal rate. No murmurs. ABDOMEN: Positive bowel sounds. Soft, nontender. EXTREMITIES: Persistent lower extremity edema, greater on the left, 1 to 2+. LABORATORY DATA: Hemoglobin 37.9, creatinine down to 1.22, from a peak of 2.39 on this admission. CURRENT CARDIAC MEDICATIONS: Include isosorbide mononitrate 30 mg daily, metoprolol succinate 12.5 mg b.i.d., simvastatin 40 mg daily. IMPRESSION: 1. Acute on chronic diastolic congestive heart failure, still mildly volume overloaded, but significantly improved. 2. Anemia and gastrointestinal bleed, status post colonoscopy showing multiple polyps. 3. Newly diagnosed atrial fibrillation of unknown duration, which is persistent. CHADS2-VASc score at least 4, unable to anticoagulate because of recent gastrointestinal bleed. 4. Coronary artery disease, status post single-vessel bypass in 2007 along with a bioprosthetic aortic valve replacement. 5. Acute kidney injury on chronic kidney disease, creatinine has continued to improve. 6. Diabetes. RECOMMENDATIONS: 1. Continue current cardiac medications. 2. Agree with Dr. Robb on sending him on a dose of oral furosemide. He is also sending him on some small dose of spironolactone. He should follow up in 1-[address] Milly Acosta. 3. No anticoagulants or anti-platelets for now. These will need to be assessed as an outpatient and hopefully, reintroduced in the next couple of weeks to [place], [place] PROGRESS NOTE NAME: TEX JAIN UNIT #: [id number] ROOM: [facility] DOCTOR: CALIXTO ZHANG BIRTHDATE: [birth year] reduce his risk of stroke because of the AFib, and to get back on aspirin because of his coronary artery disease. Dr. CALIXTO ZHANG MD CM:PNTRANS [phone] CALIXTO ZHANG 01/11/19 2331 interface
--- NOTE | ~2018-12-26 | PR ---
[place], [place] PROGRESS NOTE NAME: TEX JAIN [facility] #: [id number] UNIT #: [id number] ROOM: 503 DOCTOR: CALIXTO ZHANG BIRTHDATE: [birth year] DOS: 01/10/2019 CARDIOLOGY PROGRESS NOTE The patient is being seen in followup for new onset atrial fibrillation and diastolic heart failure. SUBJECTIVE: The patient states he is breathing okay and denies any chest pain. No further episodes of epistaxis and hematuria seems to have calmed down. No other signs of bleeding. He received a dose of IV furosemide yesterday and a dose of IV furosemide this morning. Per Nephrology, his kidney function is improved and stable. He has planned for colonoscopy this afternoon. OBJECTIVE: VITAL SIGNS: Afebrile, pulse 74, respirations 16, blood pressure 124/69. He remained in a predominantly rate controlled atrial fibrillation on the monitor, saturating 91% on 3 liters nasal cannula. GENERAL APPEARANCE: Sitting up in the side of the bed, in no distress. NECK: Supple. JVP does appear elevated. No carotid bruits. RESPIRATORY: Bibasilar rales. CARDIOVASCULAR: Irregular rhythm with normal rate. No murmur. ABDOMEN: Positive bowel sounds. Soft, nontender. EXTREMITIES: 2+ pitting edema, persistent bilateral lower extremities. LABORATORY DATA: Blood work is still pending from today. CURRENT CARDIAC MEDICATIONS: Include furosemide 40 mg IV x 1 today, additionally he got 1 dose yesterday, isosorbide mononitrate 30 mg daily, metoprolol succinate 12.5 mg b.i.d., simvastatin 40 mg daily, anticoagulants and antiplatelet agents are on hold. IMPRESSION: 1. Acute on chronic diastolic congestive heart failure, remains volume overloaded, using cautious diuretics because of fluctuating renal dysfunction. 2. Anemia with suspected gastrointestinal bleed, pending colonoscopy today. 3. Newly diagnosed atrial fibrillation of unknown duration, appears persistent. CHADS2-VASc score at least 4, anticoagulants on hold. 4. Coronary artery disease, status post single-vessel bypass in 2007 along with bioprosthetic aortic valve replacement. 5. Acute kidney injury on chronic kidney disease. 6. Diabetes. RECOMMENDATIONS: 1. Continue current medical therapy. 2. Today's labs are pending. 3. GI evaluation this afternoon, anticoagulants and antiplatelets remain on hold for now. [place], [place] PROGRESS NOTE NAME: TEX JAIN UNIT #: [id number] ROOM: [facility] DOCTOR: CALIXTO ZHANG BIRTHDATE: [birth year] DrCari ZHANG MD CM:PNTRANS [phone] CALIXTO ZHANG 01/11/19 0028 interface
--- NOTE | ~2018-12-26 | PR ---
[place], [place] PROGRESS NOTE [facility] [id number] UNIT #: [id number] ROOM: 503 DOCTOR: ORI CARLIN MD,LUCA BIRTHDATE: [birth year] DOS: 01/03/2019 PULMONARY PROGRESS NOTE SUBJECTIVE: The patient has been noted comfortable at this time, resting, sitting on the bed. Denies any acute shortness of breath, coughing, chest pain or hemoptysis. The patient has not been reported any symptoms of abdominal pain. OBJECTIVE: VITAL SIGNS: For the patient this morning is normal temperature, respiratory rate 18, heart rate 51, blood pressure 128/70. Pulse oxygen saturation recorded on 3 liters nasal cannula 98% saturation. HEENT: Examination shows head was atraumatic. Eyes nonicterus. NECK: Supple. CARDIOVASCULAR: S1, S2 is audible. LUNGS: Noted without any wheezing or crackles at the present time. ABDOMEN: Soft, nontender. Bowel sounds present. EXTREMITIES: Noted with partial reduction in edema of the lower extremities. IMPRESSION: Cellulitis of both lower extremities. The patient with acute exacerbation of chronic obstructive pulmonary disease, acute tracheobronchitis, history of sarcoidosis, pulmonary nodule and lymph node enlargement. PLAN OF MANAGEMENT: No changes in the plan of management. Continue current plan of management at this time as ongoing. Discharge planning primary care physician after clearance from the other physician including the Infectious Disease recommendation and management of cellulitis. LUCA REHMAN MD CM:PNTRANS [phone] LUCA CARLIN MD 01/03/19 1604 interface
--- NOTE | ~2018-12-26 | PR ---
[place], [place] PROGRESS NOTE [id number] #: [id number] ROOM: 503 DOCTOR: KERRI KINGSTON MD BIRTHDATE: [birth year] DOS: 01/02/2019 SUBJECTIVE: A 24-hour events noted. Discussed with the nursing staff. The patient is hemodynamically appears to be stable. OBJECTIVE: VITAL SIGNS: Blood pressure is 102/49. I's and O's negative 1431 mL, diuresing very well, hemodynamically stable. HEENT: Unremarkable. NECK: Supple, no JVD. LUNGS: Diminished air entry. HEART: Sounds are regular. NEUROLOGIC: Stable. REVIEW OF SYSTEMS: A 6-8 systems reviewed are negative. CMP yesterday noted. BUN 36 and creatinine is 1.6. IMPRESSION: The patient with chronic diastolic heart failure, bilateral leg edema, sarcoidosis history. The patient's cardiac status appears to be stable. RECOMMENDATIONS: Continue with diuresing as ordered. The patient to be transferred to skilled care facility when bed available. KERRI KINGSTON MD CM:PNTRANS 0724 1609 KERRI KINGSTON MD 01/02/19 1609 interface
--- NOTE | ~2018-12-26 | PR ---
[place], [place] PROGRESS NOTE NAME: TEX JAIN UNIT #: [id number] ROOM: 503 DOCTOR: LUIS LEYVA MD BIRTHDATE: [birth year] DOS: 01/02/2019 SUBJECTIVE: The patient is starting to breathe better, but he has recurrent episodes of ventricular tachycardia up to 16 beats at a time. OBJECTIVE: VITAL SIGNS: Blood pressure 120/59, heart rate 92 beats per minute, breathing 19 times per minute, temperature 98.6 degrees Fahrenheit. GENERAL APPEARANCE: The patient is alert and oriented x 3, in no visible distress. HEENT AND NECK: Exam within normal limits. CARDIOVASCULAR SYSTEM: Heart rate is regular in rate and rhythm. S1 and S2 normally audible. LUNGS: Decreased breath sounds on lung auscultation. The patient wearing oxygen. ABDOMEN: Soft, nontender. No obvious organomegaly. Bowel sounds are present. EXTREMITIES: Without significant cyanosis or edema. IMPRESSION: 1. Recurrent ventricular tachycardia up to 16 beats at a time. Cardiology consulted to help manage and the patient started back on Lopressor, which was earlier stopped for hypotension and bradycardia and patient was symptomatic at that time, but the patient is not symptomatic with ventricular tachycardia at present time. 2. History of sarcoidosis and pulmonary nodules. 3. Acute exacerbation of chronic obstructive pulmonary disease with severe underlying disease and acute over chronic respiratory failure, continues to improve with treatment with corticosteroids, bronchodilators, oxygen and antibiotic. 4. Bilateral leg cellulitis of the right leg more than the left, treated with antibiotics and improving. The patient waiting for transfer to detention facility, was held back for ventricular tachycardia. 5. Benign prostatic hypertrophy and urine retention, asymptomatic with treatment. 6. History of coronary artery disease of [place] vessels without chest pains. [place], [place] PROGRESS NOTE NAME: TEX JAIN UNIT #: [id number] ROOM: 503 DOCTOR: LUIS LEYVA MD BIRTHDATE: [birth year] LUIS LEYVA MD CM:PNTRANS [phone] LUIS LEYVA MD 01/03/19 0404 interface
--- NOTE | ~2018-12-26 | CON ---
[place], [place] REPORT OF CONSULTATION [id number] UN[facility] #: [id number] ROOM: 503 DOCTOR: CARMELA BRITO MD BIRTHDATE: [birth year] DOS: REASON FOR CONSULTATION: Left leg cellulitis. CHIEF COMPLAINT: Left leg swelling. HISTORY OF PRESENT ILLNESS: This is a 73-year-old male who presented with left leg swelling, which started last Tuesday when they were on a vacation trip. First, he noticed a blister over his mid leg that burst and then later developed more redness and swelling. He denied having any trauma to the leg. He swam in a swimming pool which was a private pool and happened after he had a blister. He has a cat bite yesterday on his other leg, which is the right leg, but no swelling, redness around that spot. He is also short of breath, which he states he always has along with some productive cough. He states that he feels cold all the time. Currently, he has no labs done. He has been sent from Dr. Ross's clinic because of the leg swelling. PAST MEDICAL HISTORY: Significant for COPD, allergic rhinitis, hyperlipidemia, sarcoidosis, history of aortic stenosis, status post aortic valve replacement done, diabetes, coronary artery disease. PAST SURGICAL HISTORY: CABG, wedge resection of left lung, aortic valve replacement, laparoscopic cholecystectomy. SOCIAL HISTORY: , 2 children, lives at home. No history of alcohol abuse or illicit drug use. Worked in poultry for 30 years. Tobacco use was reported from age of 15. One pack of cigarettes a day until 1998. FAMILY HISTORY: Father at the age of 60 because of [place]. Mother at age of 83 from [place] as well. MEDICATIONS: Reviewed. ALLERGIES: No known drug allergies. PHYSICAL EXAMINATION: GENERAL: The patient is alert, oriented x 3, not in acute distress. HEENT: Atraumatic, normocephalic. PERRLA, EOMI. RESPIRATORY: Air entry bilaterally equal. No wheeze or crackles. CARDIOVASCULAR: S1, S2 normal. No murmur, rubs or gallop. ABDOMEN: Soft, nontender, nondistended. Bowel sounds present. EXTREMITIES: Left lower extremity has a blister noted, which burst already with surrounding redness, minimal tenderness, swelling, bilateral 3+ pitting edema. NEUROLOGIC: Cranial nerves intact. No labs. Imaging done so far. ASSESSMENT AND PLAN: 1. Left lower leg, nonpurulent cellulitis. 2. Bilateral lower extremity edema, likely congestive heart failure [place], [place] REPORT OF CONSULTATION NAME: TEX JAIN UNIT #: [id number] ROOM: [facility] DOCTOR: CARMEAL BRITO MD BIRTHDATE: [birth year] exacerbation. 3. History of aortic valve replacement. PLAN: At this time, continue with ceftriaxone for now, leg elevation, titration and optimization of his heart failure medications. We will follow the patient closely. Thank you, Dr. Ross, for the consult. I will follow the patient closely. Carmela Brito MD CM:CONSTR:REPORT OF CONSULTATION 1504 12/26/18 2343 interface
--- NOTE | ~2018-12-26 | PR ---
[place], [place] PROGRESS NOTE [id number] UNIT #: [id number] ROOM: 503 DOCTOR: MARIBELL CISNEROS MD BIRTHDATE: [birth year] DOS: 12/29/2018 SUBJECTIVE: The patient still has a lot of swelling in the feet. He has a dressing on the lower part of the legs. He has no PND, orthopnea, some shortness of breath, has denied any chest pain or palpitations. Appetite is fine. He has ambulated very little. PHYSICAL EXAMINATION: GENERAL: This is a patient who is alert, oriented. Complexion is little pale. VITAL SIGNS: His temperature is normal. Pulse is regular at 72 beats per minute. Blood pressure 106/60. NECK: JVP is increased with a positive AJR. CARDIOVASCULAR: Auscultation is unremarkable. LUNGS: Breath sounds are diminished with rhonchi and some crackles in both lungs. EXTREMITIES: Edema of the feet is 3 to 4+ and there is some edema of the pretibial area, but these areas have a dressing on them. I think the compression is probably making edema in the feet worse. LABORATORY DATA: Hemoglobin 8 g/dL 2 days ago, potassium is 3.8 today, BUN 26, creatinine 1.36 and was 1.76 yesterday. IMPRESSION: This patient has diastolic heart failure and needs to be diuresed more aggressively, Lasix 40 mg daily along with potassium supplements have been ordered and should be continued for the next 2 to 3 days. MARIBELL CISNEROS MD CM:PNTRANS [phone] MARIBELL CISNEROS MD 12/30/18 0306 interface
--- NOTE | ~2018-12-26 | ST ---
[place], [place] EXERCISE STRESS TEST REPORT [id number] UNIT #: [id number] ROOM: 503 DOCTOR: KIRSTY BRAXTON MD BIRTHDATE: [birth year] DOS: 01/04/2019 LEXISCAN STRESS EKG REFERRING PHYSICIAN: Dr. Ross. INDICATION: Nonsustained ventricular tachycardia, CHF, CAD. The patient underwent standard protocol Lexiscan stress EKG. The patient's baseline EKG showed atrial fibrillation with right bundle-branch block, nonspecific ST-T wave changes. The patient's baseline heart rate 77 with blood pressure was 90/52. The patient's peak heart rate was 105 with a blood pressure 88/40. The patient had no chest pain, no ST-T wave changes and no arrhythmias. SUMMARY OF FINDINGS: Unremarkable Lexiscan stress EKG. Please see separate report for perfusion scan imaging results. KIRSTY BRAXTON MD CM:STRESS:EXERCISE STRESS TEST REPORT [id number] KIRSTY BRAXTON MD
--- NOTE | ~2018-12-26 | PR ---
[place], [place] PROGRESS NOTE [facility]: [id number] UNIT #: [id number] ROOM: 503 DOCTOR: LUIS LEYVA MD BIRTHDATE: [birth year] DOS: 01/08/2019 SUBJECTIVE: The patient continues to breathe better, although he is quite weak. The patient has decided to go to [place]. OBJECTIVE: VITAL SIGNS: Blood pressure 116/60, heart rate of 89 beats per minute, breathing 18-22 times per minute, temperature 98 degrees Fahrenheit. GENERAL APPEARANCE: The patient is alert and oriented x 3, in no visible distress. Generalized weakness. HEENT AND NECK: Exam within normal limits. CARDIOVASCULAR SYSTEM: Heart rate is regular in rate and rhythm. S1 and S2 normally audible. LUNGS: Decreased breath sounds. ABDOMEN: Soft, nontender. No obvious organomegaly. Bowel sounds are present. EXTREMITIES: Cellulitis in the legs is resolving. Slight edema, left. IMPRESSION: 1. Acute gastrointestinal bleed with a hemoglobin of 7.1 after blood transfusion. I will repeat his hemoglobin tomorrow. Dr. Tadeo following, he is on consult. 2. Bilateral lower lung pneumonia, being treated with Zosyn. 3. Bilateral leg cellulitis, improving with treatment, still has some leg edema. 4. Chronic atrial fibrillation. The patient anticoagulated with Xarelto. 5. Benign prostatic hypertrophy and urine retention, asymptomatic with treatment. 6. Corticosteroid-induced hyperglycemia, improved with discontinuing Solu-Medrol. 7. Coronary artery disease of the [place] vessels without chest pains. 8. Nonsustained V-tach, resolved with beta-leroy. LUIS LEYVA MD CM:PNTRANS 1511 T: LUIS LEYVA MD 01/26/19 1405 GAY [email or web address].R
--- NOTE | ~2018-12-26 | PR ---
[place], [place] PROGRESS NOTE NAME: TEX JAIN [facility] #: [id number] UNIT #: [id number] ROOM: 503 DOCTOR: GORDON WELLS,LUIS Srivastava BIRTHDATE: [birth year] DOS: 01/10/2019 SUBJECTIVE: 1. The patient with acute gastrointestinal bleed going for panendoscopy today, hemoglobin stable at 8.8 after the patient received 2 units of packed cells. 2. Right lung pneumonia, upper and lower lobe, status post bronchoscopy. Dr. Flores following and treating, clinically improving. Case was discussed with him yesterday. 3. Acute on chronic diastolic type congestive heart failure, being followed by Dr. Lou, the jockey room custodian. 4. Chronic atrial fibrillation with controlled heart rates. The patient is anticoagulated with Xarelto. 5. Coronary artery disease of the [place] vessels without chest pains. 6. Benign prostatic hypertrophy and urinary retention, asymptomatic with treatment. 7. Bilateral leg cellulitis, continues to resolve with antibiotics. LUIS LEYVA MD CM:PNTRANS [id number] LUIS LEYVA MD 01/11/19 0039 interface
--- NOTE | ~2018-12-26 | CON ---
[place], [place] REPORT OF CONSULTATION [facility] [id number] UNIT #: [id number] ROOM: 503 DOCTOR: MICHELL SHANKAR MD BIRTHDATE: [birth year] DOS: 01/08/2019 GASTROENDOSCOPIC REPORT HISTORY OF PRESENT ILLNESS: The patient has presented with multiple medical issues among which has been shortness of breath and cellulitis of the lower extremity. The patient has been under admission and supportive care for past several days. His CBC on 01/05/2019 showed H and H of 7.9 and 25 and his comprehensive metabolic with renal insufficiency, 46 and 2.8 and electrolytes has been borderline normal. His H and H dropped to 7 and 22 and I have been asked for assessment of the patient in this regard and drop in H and H and noticing blood in his stool. His blood cultures have been unremarkable. His INR has been appropriate. His guaiac positivity has been confirmed. His PT/INR of 12 and 1.1. All has been noticed. His urine studies were noticed. Urine cultures, no bacteria has been growing. PAST MEDICAL HISTORY: Coronary artery disease, congestive heart failure, cellulitis of lower extremity, COPD, renal insufficiency, diabetes mellitus, and atrial fibrillation. PAST SURGICAL HISTORY: Cholecystectomy and CABG. SOCIAL HISTORY: Passive smoker, stopped smoking 20 years ago. Nonalcohol consumer. ALLERGIES: TAPE. MEDICATIONS: List has been reviewed including aspirin. REVIEW OF SYSTEMS: HEENT: Denies double vision, blurred vision. RESPIRATORY: Admits with shortness of breath. CARDIOVASCULAR: Denies acute chest pain. DIGESTIVE SYSTEM: No hematemesis, blood in stool. PHYSICAL EXAMINATION: VITAL SIGNS: Stable. GENERAL: COPD the patient. HEENT: Head normocephalic, nontraumatic. Mouth and buccal mucosa benign. NECK: Supple. No thyromegaly, no cervical lymphadenopathy. CHEST: COPD, scattered wheezes. HEART: Normal sinus rhythm, no gallop, no murmur. ABDOMEN: Soft. No hepato-organomegaly. Bowel sounds present, protruding large. No rebound effect. No pulsatile mass. EXTREMITIES: Cellulitis of lower extremities bilaterally. NEUROLOGIC: Fully alert, oriented to time, place, and person. LABORATORY DATA: Reviewed. Records reviewed. IMPRESSION: Cellulitis, lower extremities; drop in H and H; renal [place], [place] REPORT OF CONSULTATION NAME: TEX JAIN UNIT #: [id number] ROOM: 503 DOCTOR: VONNIE WELLS,MICHELL BIRTHDATE: [birth year] insufficiency; atrial fibrillation; chronic obstructive pulmonary disease; diabetes mellitus; all has been recognized. Labs and records have been assessed. PLAN AND DISCUSSION: This patient has had blood in the stool, we are going to organize EGD and colonoscopy on Tuesday. Thank you very much indeed. MICHELL SHANKAR MD CM:CONSTR:REPORT OF CONSULTATION 13 01/30/19 1537 interface
--- NOTE | ~2018-12-26 | PR ---
[place], [place] PROGRESS NOTE [facility] [id number] UNIT #: [id number] ROOM: 503 DOCTOR: LUIS LEYVA MD BIRTHDATE: [birth year] DOS: 01/03/2019 SUBJECTIVE: The patient with recurrent ventricular tachycardia, being followed by Cardiology, now restarted on metoprolol and complaining of lower back pains, which he calls kidney pains. OBJECTIVE: VITAL SIGNS: Blood pressure 128/70, heart rate of 68 beats per minute, breathing 18 times per minute, temperature 98.4 degrees Fahrenheit. GENERAL APPEARANCE: The patient is alert and oriented x 3, in no visible distress. HEENT AND NECK: Exam within normal limits. CARDIOVASCULAR SYSTEM: Heart rate is regular in rate and rhythm. S1 and S2 normally audible. LUNGS: Decreased breath sounds. ABDOMEN: Soft, nontender. No obvious organomegaly. Bowel sounds are present. EXTREMITIES: Without significant cyanosis or edema. IMPRESSION: 1. Acute exacerbation of chronic obstructive pulmonary disease, improved with treatment. 2. Recurrent ventricular tachycardia up to 16 beats, being treated with metoprolol, Cardiology to follow. 3. Kidney pains, lower back pains, being treated with Tylenol, improved. Patient's urine checked out positive for blood and pus cells. Patient already treated with antibiotic recently. I will start the patient back on antibiotic and wait for culture results. 4. History of coronary artery disease of [place] vessels without chest pain. 5. Benign prostatic hypertrophy and urine retention, asymptomatic. 6. Bilateral leg cellulitis, being treated with leg elevation, compression and antibiotics. LUIS LEYVA MD CM:PNTRANS [id number] LUIS LEYVA MD 01/03/19 2356 interface
--- NOTE | ~2018-12-26 | PR ---
[place], [place] PROGRESS NOTE [facility] [id number] UNIT #: [id number] ROOM: 503 DOCTOR: LUIS LEYVA MD BIRTHDATE: [birth year] DOS: 01/06/2019 SUBJECTIVE: The patient is still short of breath. PHYSICAL EXAMINATION: GENERAL APPEARANCE: The patient is alert and oriented x 3, in no visible distress. Generalized weakness. VITAL SIGNS: Blood pressure 105/72, heart rate 89 beats per minute, breathing 20 times per minute, temperature 98 degrees Fahrenheit. HEENT AND NECK: Exam within normal limits. CARDIOVASCULAR SYSTEM: Heart rate is regular in rate and rhythm. S1 and S2 normally audible. LUNGS: Clear to auscultation. ABDOMEN: Soft, nontender. No obvious organomegaly. Bowel sounds are present. EXTREMITIES: Without significant cyanosis or edema. IMPRESSION: 1. The patient with opacities in both lower lungs compatible with pneumonia. Dr. Flores is following. The patient on IV Zosyn. 2. Corticosteroid-induced hyperglycemia, Solu-Medrol was stopped. 3. Acute over chronic kidney failure, vasomotor type, being followed closely by Nephrology. 4. Acute over chronic diastolic-type congestive heart failure with peripheral volume overload and congestive heart failure, improved with treatment. 5. Coronary artery disease of [place] vessels without chest pain. 6. Nonsustained ventricular tachycardia has resolved with use of Lopressor. 7. Chronic atrial fibrillation, heart rates are controlled. The patient on Xarelto, anticoagulated. 8. Bilateral leg cellulitis, improving with treatment. 9. Benign prostatic hyperplasia and urine retention. He is asymptomatic with treatment. 10. The patient's acute lower back pains have resolved. LUIS LEYVA MD CM:PNTRANS [id number] LUIS LEYVA MD 01/07/19 0617 interface
--- NOTE | ~2018-12-26 | PR ---
[place], [place] PROGRESS NOTE [facility] [id number] UNIT #: [id number] ROOM: 503 DOCTOR: LUIS LEYVA MD BIRTHDATE: [birth year] DOS: 01/09/2019 SUBJECTIVE: The patient is doing much better. He is scheduled for an endoscopy for acute gastrointestinal bleed by Dr. Tadeo on Tuesday. OBJECTIVE: VITAL SIGNS: Blood pressure 122/64, heart rate of 69 beats per minute, breathing 16-18 times per minute, temperature 98.8 degrees Fahrenheit. GENERAL APPEARANCE: The patient is alert and oriented x 3, in no visible distress, generalized weakness. The patient is wearing oxygen. HEENT AND NECK: Exam within normal limits. CARDIOVASCULAR SYSTEM: Heart rate is regular in rate and rhythm. S1 and S2 normally audible. LUNGS: Somewhat decreased breath sounds all over. ABDOMEN: Soft, nontender. No obvious organomegaly. Bowel sounds are present. EXTREMITIES: Without significant cyanosis or edema. IMPRESSION: 1. Acute gastrointestinal bleed and anemia. Hemoglobin is at hemoglobin at 8.5, now after transfusing 2 units of blood. The patient is going for panendoscopy by Dr. Tadeo tomorrow. 2. Acute on chronic diastolic type congestive heart failure. The patient is being followed by roll forming machine operator, Dr. Lou. 3. The patient on Xarelto for chronic atrial fibrillation. 4. Recurrent ventricular tachycardia stabilized and asymptomatic with beta leroy now. 5. Coronary artery disease of the [place] vessels without chest pains. 6. Acute over chronic kidney disease followed and treated by Nephrology. BUN and creatinine of 30 and 1.6. 7. Benign prostatic hypertrophy and urinary retention, asymptomatic with treatment. 8. Bilateral leg cellulitis continues to resolve with antibiotics. LUIS LEYVA MD CM:PNTRANS [phone] LUIS LEYVA MD 01/10/19 0322 interface
--- NOTE | ~2018-12-26 | PR ---
[place], [place] PROGRESS NOTE [facility] [id number] UNIT #: [id number] ROOM: 503 DOCTOR: ORI CARLIN MD,LUCA BIRTHDATE: [birth year] DOS: 01/07/2019 SUBJECTIVE: The patient noted comfortable at this time, resting in the bed. Coughing symptoms continued to resolve. Culture of the sputum noted heavy growth of Pseudomonas aeruginosa. The patient was started on intravenous Zosyn for that. He denies symptoms of fever, chills or any acute hemoptysis. OBJECTIVE: VITAL SIGNS: For the patient this morning is normal temperature, respiratory rate 16, heart rate 71, blood pressure 120/66, pulse oxygen saturation related 97% saturation. HEAD, EYES, EARS, NOSE, AND THROAT: Examination shows head was atraumatic. Eyes nonicterus. NECK: Supple. CARDIOVASCULAR SYSTEM: S1, S2 audible. LUNGS: Noted basilar crackles, no wheezing. ABDOMEN: Soft, nontender. Bowel sounds present. EXTREMITIES: Still noted same changes with edema without any worsening. IMPRESSION: 1. Acute Pseudomonas aeruginosa tracheobronchitis, acute pneumonia. 2. Cellulitis of the lower extremities was also improving. 3. Resolving acute exacerbation of chronic obstructive pulmonary disease. 4. Hyperglycemia related to corticosteroids. PLAN OF MANAGEMENT: Steroids were discontinued yesterday. Continue current antibiotics. Bronchodilators. Another chest x-ray repeated in the morning. The patient was also noted anemia and was getting blood transfusion today as ordered by Dr. Ross. LUCA REHMAN MD CM:PNTRANS [phone] LUCA CARLIN MD 01/07/191941 interface
--- NOTE | ~2018-12-26 | PR ---
[place], [place] PROGRESS NOTE NAME: TEX JAIN [facility] #: [id number] UNIT #: [id number] ROOM: 503 DOCTOR: ORI CARLIN MD,LUCA BIRTHDATE: [birth year] DOS: 01/06/2019 SUBJECTIVE: He has been noted comfortable at this time with reduction of cough, frequent intensity and quantity sputum expectoration noted in the last 24 hours. The patient denies symptoms of fever, chills or hemoptysis. The patient was continued on oral Omnicef at this time and has not restarted any additional antibiotic so far. OBJECTIVE: VITAL SIGNS: For the patient, which are recorded shows a temperature of 99.2 degrees Fahrenheit, normal temperature, respiratory rate 18, heart rate 89, blood pressure 122/64. Pulse oxygen saturation on 4 liters nasal cannula 93% saturation recorded. HEENT: Head was atraumatic. Eyes nonicterus. NECK: Supple. CARDIOVASCULAR: S1, S2 audible. LUNGS: The patient was still noted crackles in the lower portion of the lungs. There was no wheezing. EXTREMITIES: Noted with edema. Edema noted partially decreased from previous examination. ABDOMEN: Soft, nontender. Bowel sounds present. SKIN: Visible skin, no lesions noted without any other acute deformities. MUSCULOSKELETAL: Without any acute deformities. CENTRAL NERVOUS SYSTEM: General weakness still remains persistent. LABORATORY DATA: Culture of the sputum from yesterday, which was obtained was already showing heavy growth of Gram-negative bacilli, pending identification sensitivities. The Gram stain many white blood cells with the patient epithelial cells with gram-negative bacilli noted as well as moderate gram-negative diplococci. The BMP this morning, BUN 43, creatinine 2.27. Glucose 198. Sodium 134. CO2 was 33. IMPRESSION: 1. Acute pneumonia would be considered with gram-negative infection suspected, rule out Pseudomonas aeruginosa other gram-negative, hospital-acquired infection. 2. History of sarcoidosis with pulmonary nodules. 3. The patient with elevation of BUN and creatinine. 4. Acute congestive heart failure. 5. Cellulitis of the lower extremities. PLAN OF MANAGEMENT: Empirically the patient started extended infusions of the Zosyn based on his creatinine clearance. In the meantime, continue the current therapy, plan of management, other plan for treatment as in progress. Usual care, other therapy, plan of management. Additional treatment changes will be made based on the progression ____ of the culture results from the patient of the sputum. Blood culture was also taken. Follow the results of that which were pending. Usual care, other therapy, plan of management, care plan of treatment. [place], [place] PROGRESS NOTE NAME: TEX JAIN UNIT #: [id number] ROOM: [facility] DOCTOR: LUCA GARCIA MD BIRTHDATE: [birth year] LUCA REHMAN MD CM:PNTRANS [phone] LUCA CARLIN MD 01/06/19 173 interface
--- NOTE | ~2018-12-26 | PR ---
[place], [place] PROGRESS NOTE NAME: TEX JAIN [facility] #: [id number] UNIT #: [id number] ROOM: 503 DOCTOR: JOANIE HODGE MD BIRTHDATE: [birth year] DOS: 12/30/2018 SUBJECTIVE: The patient is sitting up taking his breathing treatments, feels much better, does not have any new complaints. OBJECTIVE: VITAL SIGNS: Blood pressure is 129/74, pulse of 68, respirations 18, temperature 97.9. LUNGS: Diminished breath sounds. Scattered rhonchi bilaterally. HEART: Regular. ABDOMEN: Obese. EXTREMITIES: Bilateral pitting edema, worse on the left than on the right, considerable improvement since admission. LABORATORY DATA: This morning, sputum culture shows normal rene with moderate yeast. Comprehensive glucose 125, BUN 24, creatinine 1.33. Sodium 141, potassium 3.7, chloride 105, bicarbonate 31, calcium 8.9, protein 5.9, albumin 2.1, SGOT 8, SGPT 9, alkaline phosphatase 45. Chest x-ray shows left lower lobe pneumonia and chronic obstructive pulmonary disease with fibrosis and congestive heart failure. ASSESSMENT AND PLAN: 1. Chronic obstructive pulmonary disease with exacerbation, on maximal treatment plan. 2. Left lower lobe pneumonia, on antibiotics. Sputum culture is negative. 3. Possibility of congestive heart failure in addition to the chronic obstructive pulmonary disease. We could do a CT of the chest this morning. Followup CT scan was done recently at [place] and we will try to get a copy of that before proceeding with further CAT scan. JOANIE HOGDE MD CM:PNTRANS [id number] JOANIE HODGE MD 01/22/19 1403 interface
--- NOTE | ~2018-12-26 | DS ---
[place], [place] DISCHARGE SUMMARY NAME: TEX JAIN [facility] #: [id number] UNIT #: [id number] ROOM: 503 DOCTOR: LUIS LEYVA MD BIRTHDATE: [birth year] DOS: 01/11/2019 DISCHARGE DIAGNOSES: 1. Acute gastrointestinal bleed and anemia. 2. Two polyps removed from the colon. 3. Acute over chronic diastolic type congestive heart failure. 4. Chronic atrial fibrillation. The patient off anticoagulants because of acute gastrointestinal bleed and drop in hemoglobin and hematocrit. 5. Coronary artery disease of the [place] vessels, single vessel bypass in 2007 with a bioprosthetic. 6. Bioprosthetic aortic valve replacement. 7. Acute on chronic kidney disease and diabetic nephropathy. 8. Type 2 diabetes mellitus. 9. Right lung pneumonia, status post bronchoscopy by Dr. Flores. 10. Coronary artery disease of the [place] vessels without chest pain. 11. Benign prostatic hypertrophy and urine retention. 12. Bilateral acute leg cellulitis, resolved with treatment with antibiotics. 13. Severe end-stage chronic obstructive pulmonary disease with chronic respiratory failure. 14. Acute exacerbation of chronic obstructive pulmonary disease. 15. Diabetic with nephropathy with stage 3 chronic kidney disease. 16. Chronic low back pains and lumbar spondylosis. 17. Moderate to severe protein-calorie malnutrition. HOSPITAL COURSE: The patient was admitted to [facility] with bilateral swelling in his legs with cellulitis, warmth and infection more on the left side. The patient was treated with antibiotics. Rule out for DVT and slowly his infection in his legs and cellulitis has gradually resolved. 1. Acute over chronic diastolic type congestive heart failure, treated with diuresis followed by Cardiology. The condition has resolved. 2. Acute exacerbation of chronic obstructive pulmonary disease, treated with antibiotics and bronchodilators and his breathing has improved. The patient had acute over chronic respiratory failure with severe emphysema. 3. Type 2 diabetes mellitus. Blood sugars were monitored and controlled. 4. History of coronary artery disease and coronary artery bypass graft with bioprosthetic aortic valve replacement. The patient was chest pain free. 5. Chronic atrial fibrillation. The patient has acute gastrointestinal bleed and recently dropping H and H, so his anticoagulation has been held back because of severe risk to his life from anemia related to gastrointestinal bleed. 6. Lumbar spondylosis and chronic lower back pains, treated and controlled. The patient was treated with opioids. 7. Moderate to severe protein-calorie malnutrition. The patient worked with Dietary. LABORATORY DATA: Hemoglobin of 7.9 prior to discharge. He is status post blood transfusion. Operative note, two polyps removed on colonoscopy by Dr. Tadeo. Blood cultures were negative. BUN and creatinine 14 and 1.2 prior to discharge. Normal serum electrolytes. DISCHARGE MANAGEMENT: Protonix 40 mg b.i.d., Carafate 2 grams q.i.d., [place], [place] DISCHARGE SUMMARY NAME: TEX JAIN [facility] #: [id number] UNIT #: [id number] ROOM: [facility] DOCTOR: LUIS LEYVA MD BIRTHDATE: [birth year] isosorbide mononitrate 30 mg a day, metoprolol 12.5 mg b.i.d., terazosin 5 mg daily, simvastatin 40 mg a day, DuoNeb every 4 hours and Pulmicort 0.5 mg b.i.d. with DuoNebs. LUIS LEYVA MD CM:REJI [id number] LUIS LEYVA MD 01/11/19 1322 interface
--- NOTE | ~2018-12-26 | PR ---
[place], [place] PROGRESS NOTE NAME: TEX JAIN [facility] #: [id number] UNIT #: [id number] ROOM: 503 DOCTOR: CALIXTO ZHANG BIRTHDATE: [birth year] DOS: 01/08/2019 CARDIOLOGY PROGRESS NOTE The patient is being seen in followup for new-onset atrial fibrillation and anemia, on anticoagulation. SUBJECTIVE: The patient denies any chest pain. He states his breathing is better. He still has lower extremity edema. On telemetry, he remains in atrial fibrillation, intermittent nonsustained VT. Overall, rate control is adequate. OBJECTIVE: VITAL SIGNS: Afebrile, pulse 57, respirations 18, blood pressure 114/64, saturating 98% on 3 liters nasal cannula. GENERAL APPEARANCE: Elderly gentleman, sitting up in bed, in no distress. NECK: Supple. JVP normal. No carotid bruits. RESPIRATORY: Few bibasilar rales. CARDIOVASCULAR: Irregular rhythm, normal rate. No murmurs. ABDOMEN: Positive bowel sounds. Soft, nontender. EXTREMITIES: 2+ pitting edema, bilateral lower extremities. LABORATORY DATA: Hemoglobin 7.1, up from 6.5, after transfusion; platelets 280. Potassium 4.1, creatinine 1.63, down from 2.21. CURRENT CARDIAC MEDICATIONS: Include isosorbide mononitrate 30 mg daily, metoprolol succinate 12.5 mg b.i.d., rivaroxaban 15 mg daily, terazosin 5 mg daily, simvastatin 40 mg daily, aspirin 81 mg daily. Echocardiogram this admission, normal LVEF of 65% with moderate LVH. Mildly hypokinetic and dilated right ventricle. Bioprosthetic aortic valve noted. IMPRESSION: 1. Hvvvn-ni-lajlkqz diastolic congestive heart failure, remains volume overloaded, diuretics have been on hold because of renal issues. 2. Anemia, started on rivaroxaban on this admission, GI eval pending. 3. Newly diagnosed atrial fibrillation of unknown duration. Rate controlled with beta-leroy. Again, rivaroxaban was added this admission. 4. Coronary artery disease, status post single vessel coronary artery bypass graft, 2007. 5. Status post bioprosthetic aortic valve replacement, 2007, normally functioning on echo. 6. Acute kidney injury/chronic kidney disease. 7. Diabetes. RECOMMENDATION: Would discontinue the rivaroxaban pending GI evaluation. Continue aspirin for now. Otherwise, continue current cardiac medications. Agree with Nephrology in terms of resuming diuretics to avoid volume overload. Creatinine is improved today. [place], [place] PROGRESS NOTE NAME: TEX JAIN UNIT #: [id number] ROOM: [facility] DOCTOR: CALIXTO ZHANG BIRTHDATE: [birth year] Dr. CALIXTO ZHANG MD CM:PNTRANS [id number] 1 CALIXTO ZHANG 01/09/19 034 interface
[~2018-12-26 13:34] MED LIST changes: +AMLODIPINE BESY10 MG PO; +CEFUROXIME AXE250 MG PO; +Diabeta,Micron2.5 MG PO; +LISINOPRIL10 M1 PO; +Lopressor25 MG PO; -METOPROLOL50 MG PO; +OMNICEF300 MG PO; +PREDNISONE10 MG PO; +PREDNISONE5 MG PO
[2018-12-26 13:45] VITALS: BP 113/68
--- NOTE | 2018-12-26 13:45 | NUR ---
A 73, admitted to , under the services of Dr. GORDON WELLS,LUIS Srivastava with a diagnosis of CELLULITIS/COPD EXACERBATION. Chief complaint is INCREASED SWELLING. Patient arrived via wheel chair from [place]. Monitor applied. Initial assessment completed. Vital signs taken and recorded. DR. GORDON WELLS,LUIS Srivastava notified of admission to the unit. Orders received. See assessment for past medical history, medications and allergies. Patient and/or family oriented to unit. Clothing/patient valuable form completed. HUMZA NOLAN
--- NOTE | 2018-12-26 14:40 | NUR ---
MADE AWARE OF MULTIPLE WOUNDS. INFORMED TO CONSULT [facility] WOUND CARE
--- NOTE | 2018-12-26 14:50 | NUR ---
INFORMED THAT ADMISSION WAS HERE, MEDS UPDATED AND VERIFIED BY PATIENT. ORDERS IN PLACE PER WISHES.
--- NOTE | 2018-12-26 14:52 | NUR ---
PRESENT AND INFORMED OF CONSULT.
[2018-12-26 16:00] VITALS: BP 96/42
--- NOTE | 2018-12-26 16:55 | NUR ---
SPOKE WITH DR. ZAVALA REGARDING CONSULT FOR WOUND CARE. NO NEW ORDERS.
--- NOTE | 2018-12-26 18:00 | NUR ---
DRESSING APPLIED TO BLE. PT HAD A LARGE AMOUNT CLEAR DRAINAGE NOTED TO BLE. CALL LIGHT IN REACH. BED ALARM ON.
--- NOTE | 2018-12-26 18:40 | NUR ---
CALLED DR. LEYVA MADE AWARE PT EKG SHOWS AFIB AND RBBB. CONSULT MALINTA AND HE IS HERE FOR MED ORDERS.
--- NOTE | 2018-12-26 18:43 | NUR ---
CALLED CONSULT DR. ZHOU TO ANSWERING SERVICE THEY WILL CONTACT HIM.
--- NOTE | 2018-12-26 18:54 | NUR ---
DR. ZHOU CALLED ORDER FOR ONE TIME DOSE OF LOVENOX.
--- NOTE | 2018-12-26 19:14 | NUR ---
CALLED DR. LEYVA AWARE PT SEES DR. CISNEROS. NEW CONSULT FOR AMELIA FELICIANO.
--- NOTE | 2018-12-26 19:15 | NUR ---
CALLED DR. CISNEROS ANSWERING SERVICE REGARDING CONSULT.
--- NOTE | 2018-12-26 19:18 | NUR ---
DR. CISNEROS CALLED ORDERS REVIEWED.
--- NOTE | 2018-12-26 19:22 | NUR ---
24 HR chart check completed.
[2018-12-26 20:00] VITALS: BP 96/51
[2018-12-27] VITALS: BP 96/43
[2018-12-27 08:00] VITALS: BP 100/58; BP 114/64
--- NOTE | 2018-12-27 08:10 | NUR ---
PT SITTING UP AT SIDE OF BED. PT HAS SMALL AMOUNT BLOOD WHEN HE BLEW HIS NOSE PER PT. BLE EDEMA, 1-2+ L>R. DRESSINGS D/I. OXYGEN IN USE. CALL LIGHT IN REACH.
--- NOTE | 2018-12-27 09:00 | NUR ---
Windows Infrastructure Engineer in to talk to patient. Patient states lives at home with his . There are 33 steps in the home. Physician: Dr. Declan Ross Pharmacy: [facility] [place] Home health services: none Patient's level of ADLs: INDEPENDENT Patient has working utilities: yes DME: O2 @ 3L nc, portable O2 tanks, nebulizer, O2 supplier [facility] Follow-up physician's appointment after d/c: he prefers to make his own follow up appt after discharge Does patient want to access PORTAL?: no Discharge plan discussed with patient. He lives at home with his . He is independent in his ADLs and ambulation. Discussed home health care services and he denies any home needs at this time. When medically stable he will be discharged to home. His will transport on discharge. YOLIE HILLS
--- NOTE | 2018-12-27 09:42 | NUR ---
CALLED DR. LEYVA MADE AWARE HOME MEDICATIONS NEED ORDERED.
[2018-12-27 10:11] LABS: BASO % 0.5 % (0.0-1.0); EOS # 0.1 10*3/uL (0.0-0.4); EOS % 1.8 % (1.0-4.0); HEMATOCRIT 25.8 % (42.0-52.0); LYMPH # 1.3 10*3/uL (1.3-4.4); LYMPH % 15.7 % (27.0-41.0); MEAN CELL VOLUME 97.7 fl (80.0-94.0); MEAN CORPUSCULAR HGB 30.3 pg (27.0-31.0); MEAN PLATELET VOLUME 9.4 fl (9.6-12.3); MONO # 0.9 10*3/uL (0.1-1.0); MONO % 10.7 % (3.0-9.0); NEUT # 5.6 10*3/uL (2.3-7.9); NEUT % 70.7 % (47.0-73.0); PLATELET COUNT AUTOMATED 239 10*3/uL (130-400); RED BLOOD COUNT 2.64 10*6/uL (4.50-5.90); RED CELL DISTRI WIDTH 16.2 % (0-14.5); WHITE BLOOD COUNT 7.9 10*3/uL (4.8-10.8)
--- NOTE | 2018-12-27 10:27 | NUR ---
DR. LEYVA IN TO SEE PT. MEDS ORDERED.
[2018-12-27 10:30] LABS: ALBUMIN 2.5 gm/dl (3.1-4.5); CREATININE 1.76 mg/dL (0.70-1.30); POTASSIUM 3.6 mmol/L (3.5-5.1); TOTAL PROTEIN 6.4 gm/dL (6.4-8.2)
--- NOTE | 2018-12-27 11:30 | NUR ---
PT UP IN CHAIR WOUND CARE NURSE INTO SEE PT. DRESSINGS CHANGED AND D/I. CALL LIGHT IN REACH.
[2018-12-27 12:00] VITALS: BP 100/46
--- NOTE | 2018-12-27 12:00 | NUR ---
[id number], SEE EMAR. CALL LIGHT IN REACH.
--- NOTE | 2018-12-27 12:52 | NUR ---
SUSYTEX Lawrence [id number] Please refer to the physician's history and physical for past medical history, comorbid conditions, and allergies. Diagnosis: CELLULITIS COPD EXACERBATION South Score: 20,LOW OR NO RISK WOUND DESCRIPTIONS: Wound Number: 1 Location of the wound: BETTE superior Type of wound: skin tear Thickness: Partial Size: 0.7cm x 0.3cm x 0.1cm Tunneling: none Undermining: none Sinus Tract: none Presence of Exudate: Serous Amount: Light Color: Red Odor: None Periwound Skin Appearance: Normal Wound edges: approximated Pain (associated with wound): denied at time of assessment How does patient state this happened? patient states that he fell going into his son's garage. Wound Number: 2 Location of the wound: BETTE medial Type of wound: skin tear Thickness: Partial Size: 3.1cm x 0.7cm x 0.1cm Tunneling: noine Undermining: none Sinus Tract: none Presence of Exudate: Serous Amount: Light Color: Red Odor: None Periwound Skin Appearance: Normal Wound edges: approximated Pain (associated with wound): denied at time of assessment How does patient state this happened? patient states that he fell going into his son's garage. Wound Number: 3 Location of the wound: RFA lateral Type of wound: skin tear Thickness: Partial Size: 1cm x 0.5cm x 0.1cm Tunneling: none Undermining: none Sinus Tract: none Presence of Exudate: Sanguineous Amount: Light Color: Red Odor: None Periwound Skin Appearance: Normal Wound edges: approximated Pain (associated with wound): tender to touch How does patient state this happened? patient states that he fell going into his son's garage. Wound Number: 4 Location of the wound: RFA anterior Type of wound: skin tear Thickness: Partial Size: 5.6cm x 3.2cm x 0.1cm Tunneling: none Undermining: none Sinus Tract: none Presence of Exudate: Sanguineous Amount: Light Color: Red Odor: None Periwound Skin Appearance: Erythema Wound edges: approximated Pain (associated with wound): tender to touch How does patient state this happened? patient states that he fell going into his son's garage. Wound Number: 5 Location of the wound: left hand Type of wound: skin tear Thickness: Partial Size: 0.4cm x 0.6cm x 0.1cm Tunneling: none Undermining: none Sinus Tract: none Presence of Exudate: Serous Amount: Light Color: Red Odor: None Periwound Skin Appearance: Normal Wound edges: approximated Pain (associated with wound): denied at time of assessment How does patient state this happened? patient states that he fell going into his son's garage. Wound Number: 6 Location of the wound: right knee Type of wound: skin tear Thickness: Partial Size: 1.1cm x 0.6cm x 0.1cm Tunneling: none Undermining: none Sinus Tract: none Presence of Exudate: Serous Amount: Light Color: Red Odor: None Periwound Skin Appearance: Normal Wound edges: approximated Pain (associated with wound): denied at time of assessment How does patient state this happened? patient states that he fell going into his son's garage. Wound Number: 7 Location of the wound: RLE Type of wound: animal bite Thickness: Partial Size: 1cm x 2cm x 0.1cm Tunneling: none Undermining: none Sinus Tract: none Presence of Exudate: Serous Amount: Light Color: Red Odor: None Periwound Skin Appearance: Erythema Wound edges: approximated Pain (associated with wound): tender to touch How does patient state this happened? patient states that his cat bit him in this area. If wound is on legs/feet or hands, capillary refill time, pulses, color temp, sensation: cap refill < 3 seconds. Wound Number: 8 Location of the wound: LLE superior blister Type of wound: Thickness: Partial Size: 5.6cm x 1.1cm x 0.1cm Tunneling: none Undermining: none Sinus Tract: none Presence of Exudate: Serous Amount: Light Color: Red Odor: None Periwound Skin Appearance: Erythema Wound edges: approximated Pain (associated with wound): denied pain at time of assessment How does patient state this happened? patient unsure how this happened but states leg has been swollen for approximately one week. If wound is on legs/feet or hands, capillary refill time, pulses, color temp, sensation: cap refill < 3 seconds. Wound Number: 9 Location of the wound: LLE anterior blsiter Type of wound: Thickness: Partial Size: 1cm x 0.6cm x 0.1cm Tunneling: none Undermining: none Sinus Tract: none Presence of Exudate: Serous Amount: Light Color: Red Odor: None Periwound Skin Appearance: Erythema Wound edges: approximated Pain (associated with wound): tender to touch How does patient state this happened? patient unsure how this happened but states leg has been swollen for approximately one week. Wound #10 scatter scabs BUE intact at time of assessment. No drainage noted. No erythema noted. Surface the patient is resting on: Isoflex SKIN PREVENTION RECOMMENDATION: 1. Pressure redistribution support surface as appropriate 2. Elevate heels 3. Remove boots/TEDS every shift and reapply 4. Head of bed 30 degrees as tolerated 5. Assess nutrition and hydration 6. Manage moisture 7. Avoid the use of containment devices while in bed 8. Use absorptive products on surfaces limit layers of linens on bed 9. Turn and reposition every 1-2 hours in bed and every 1 hour in chair as tolerated 10. Weight shifts every 15 minutes while up in chair 11. Offloading with pillows or device to keep heels elevated off bed 12. Monitor skin at least every shift 13. Inspect under medical devices twice a day WOUND TREATMENT RECOMMENDATIONS: Continue current orders placed 12/27/18.
--- NOTE | 2018-12-27 14:31 | NUR ---
PHYSICAL THERAPY Physical therapy evaluation attempted. Patient fatigued and requesting PT return at a later date. Will attempt PT evaluation at a later date. Thank you Dipti Cabrera, SPT Priyanka Phipps,PT,DPT
--- NOTE | 2018-12-27 14:49 | NUR ---
CALLED DR. LEYVA AWARE OF CXR. CONSULT ORI
[2018-12-27 16:00] VITALS: BP 112/55
--- NOTE | 2018-12-27 19:12 | NUR ---
24 HR chart check completed.
[2018-12-27 20:00] VITALS: BP 104/59
--- NOTE | 2018-12-27 20:17 | NUR ---
CALLED IN REGARDS TO PT'S BP AND PULSE. STATED THAT THE METOPROLOL 50MG BID NEEDS CHANGED TO METOPROLOL 25MG BID AND THAT THE DOSEAGE FOR TONIGHT NEEDS HELD. SEE ORDERS.
[2018-12-28] VITALS: BP 104/55
[2018-12-28 08:00] VITALS: BP 100/48; BP 118/62
--- NOTE | 2018-12-28 08:30 | NUR ---
PATIENT RESTING IN BED. PATIENT STATED HE WAS SOB LAST NIGHT BUT FELT BETTER THIS MORNING. PRODUCTIVE COUGH. WHEEZING HEARD IN BOTH LUNGS. 3 L NC. PATIENT C/O NO PAIN. CALL LIGHT WITHIN REACH.
[2018-12-28 11:57] VITALS: BP 104/50
--- NOTE | 2018-12-28 13:46 | NUR ---
PHYSICAL THERAPY Physical therapy evaluation attempted, screen complete. Patient reports independence in room with FWW. Patient reports using the bathroom and getting up and down from the chair without difficulty. Patient reports no PT needs at this time. Please discharge the PT orders. Thank you, Dipti Cabrera, SPT Priyanka Phipps,PT,DPT
--- NOTE | 2018-12-28 14:17 | NUR ---
CLARIFIED W/ DR REHMAN THE DOSE OF LASIX 40MG IV ONCE W/ A BLOOD PRESSURE OF 104/50. DR REHMAN STATED TO GIVE LASIX ORDERED.
[2018-12-28 16:00] VITALS: BP 105/57
[2018-12-28 20:00] VITALS: BP 102/47
--- NOTE | 2018-12-28 20:36 | NUR ---
SITTING AT SIDE OF BED. NO COMPLAINTS VOICED.
[2018-12-29] VITALS: BP 86/42
--- NOTE | 2018-12-29 01:10 | NUR ---
24 HOUR CHART CHECK DONE
[2018-12-29 07:22] LABS: ALBUMIN 2.2 gm/dl (3.1-4.5); CHLORIDE 105 mmol/L (98-107); POTASSIUM 3.8 mmol/L (3.5-5.1); SODIUM 140 mmol/L (136-145)
[2018-12-29 07:25] LABS: ALKALINE PHOSPHATASE 48 U/L (45-117); BUN 26 mg/dl (7-24); CREATININE 1.36 mg/dL (0.70-1.30); SGOT/AST 5 IU/L (3-35); SGPT/ALT 9 U/L (12-78)
[2018-12-29 08:00] VITALS: BP 96/56
--- NOTE | 2018-12-29 08:30 | NUR ---
[employer] in to see patient. No new needs or request at this time. He denies any home needs. When medically stable he will be discharged to home.
--- NOTE | 2018-12-29 09:33 | NUR ---
SPOKE WITH DR LEYVA ABOUT PATIENT'S BLOOD PRESSURE BEING 96/56. DR LEYVA STATED TO DISCONTINUE HYTRIN, ZESTRIL, AND LOPRESSOR.
[2018-12-29 12:00] VITALS: BP 101/65
[2018-12-29 16:00] VITALS: BP 110/55
--- NOTE | 2018-12-29 17:02 | NUR ---
PATIENT LAYING IN BED WATCHING TV. NO DISTRESS NOTED. CALL LIGHT WITHIN REACH. NO C/O PAIN.
[2018-12-29 20:00] VITALS: BP 112/77
--- NOTE | 2018-12-29 20:00 | NUR ---
RESTING IN BED; ALERT & ORIENTED. 02 INTACT AT 2LPM VIA NASAL CANNULA. LUNGS DIMINISHED BIALTERALLY & PATIENT STATES THAT HE HAS A PRODUCTIVE COUGH FOR YELLOW SPUTUM. STATES THAT HIS COUGH HAS DECREASED. EDEMA NOTED TO LOWER EXTREMITIES. PT. VOICES NO C/O PAIN OR DISCOMFORT AT THIS TIME. CALL LIGHT WITHIN REACH.
--- NOTE | 2018-12-29 22:00 | NUR ---
BLOOD SUGAR 163.
[2018-12-30] VITALS: BP 129/74
--- NOTE | 2018-12-30 06:00 | NUR ---
BLOOD SUGAR 115.
[2018-12-30 06:36] LABS: ALBUMIN 2.1 gm/dl (3.1-4.5); ALKALINE PHOSPHATASE 45 U/L (45-117); BUN 24 mg/dl (7-24); CHLORIDE 105 mmol/L (98-107); CREATININE 1.33 mg/dL (0.70-1.30); POTASSIUM 3.7 mmol/L (3.5-5.1); SGOT/AST 8 IU/L (3-35); SGPT/ALT 9 U/L (12-78); SODIUM 141 mmol/L (136-145); TOTAL PROTEIN 5.9 gm/dL (6.4-8.2)
[2018-12-30 12:00] VITALS: BP 104/54
[2018-12-30 16:00] VITALS: BP 112/74
[2018-12-30 20:00] VITALS: BP 101/58
--- NOTE | 2018-12-30 20:00 | NUR ---
SITTING ON SIDE OF BED. 02 INTACT; PT. VOICES NO C/O AT THIS TIME. CALL LIGHT WITHIN REACH.
--- NOTE | 2018-12-30 22:00 | NUR ---
BLOOD SUGAR 316.
[2018-12-31] VITALS: BP 110/57
[2018-12-31 06:57] LABS: ALBUMIN 2.4 gm/dl (3.1-4.5); POTASSIUM 4.6 mmol/L (3.5-5.1)
[2018-12-31 07:01] LABS: CREATININE 1.65 mg/dL (0.70-1.30); TOTAL PROTEIN 6.5 gm/dL (6.4-8.2)
[2018-12-31 12:00] VITALS: BP 105/59
[2018-12-31 16:00] VITALS: BP 102/50
--- NOTE | 2018-12-31 19:47 | NUR ---
PATIENT RESTING IN BED WITH NO S/S OF DISTRESS. DENIES PAIN OR NEEDS AT THIS TIME. BED IN LOWEST POSITION, CALL LIGHT IN REACH
[2018-12-31 20:00] VITALS: BP 114/47
[2019-01-01] VITALS: BP 110/54
--- NOTE | 2019-01-01 01:21 | NUR ---
24 HR chart check completed.
--- NOTE | 2019-01-01 01:28 | NUR ---
PATIENT RESTING IN BED WITH EYES CLOSED. RESPS EASY AND REGULAR. BED IN LOWEST POSITION, CALL LIGHT IN REACH
[2019-01-01 08:00] VITALS: BP 119/55
[2019-01-01 12:00] VITALS: BP 102/46
[2019-01-01 16:00] VITALS: BP 115/54
[2019-01-01 20:00] VITALS: BP 119/67
--- NOTE | 2019-01-01 23:10 | NUR ---
PATIENT ASLEEP IN BED AT THIS TIME. RESPIRATIONS EASY, NO S/S OF DISTRESS NOTED. O2 IN USE VIA 3L NC. WILL MONITOR. CALL LIGHT IN REACH.
[2019-01-02] VITALS: BP 102/49
[2019-01-02 08:00] VITALS: BP 110/60
--- NOTE | 2019-01-02 09:00 | NUR ---
[employer] Operations Consultant in to see patient. Discussed short term rehab and home health care services and he refuses both. He denies any home needs at this time. When medically stable he will be discharged to home.
[2019-01-02 12:00] VITALS: BP 107/69
--- NOTE | 2019-01-02 13:01 | NUR ---
PER DR LEYVA PT MAY REMOVE CM TO SHOWER
[2019-01-02 16:00] VITALS: BP 114/54
--- NOTE | 2019-01-02 19:30 | NUR ---
PT AWAKE SITTING UP ON SIDE OF BED. NO COMPLAINTS VOICED. PT DENIES ANY NEEDS. WILL MONITOR. CALL LIGHT IN REACH.
[2019-01-02 20:00] VITALS: BP 119/59
--- NOTE | 2019-01-02 20:40 | NUR ---
ATTEMPTED TO CALL TO UPDATE ON PATIENT'S STATUS. NO ANSWER. WILL TRY AGAIN.
--- NOTE | 2019-01-02 20:46 | NUR ---
CALLED 'S ANSWERING SERVICE. SPOKE TO DR. KINGSTON WHO IS [facility]. DISCUSSED PATIENT HAVING MULTIPLE RUNS OF VTACH THIS AFTERNOON. DISCUSSED HX OF AFIB AND MEDICATIONS THAT PT IS CURRENTLY ON. DISCUSSED D/C OF METOPROLOL ON 12/29/18. RN WAS UNSURE WHY METOPROLOL WAS D/Osman AND WAS LOOKING THROUGH NOTES WHILE ON THE PHONE WITH . RN TOLD THAT METOPROLOL WAS D/Osman DUE TO HYPOTENSION PER 'S NOTE. REPLIED "I DO NOT KNOW THE PATIENT OR WHAT IS GOING ON WITH HIM. I WOULD SAY METOPROLOL 25 MG BID, BUT YOU WILL HAVE TO TALK TO ." WILL ATTEMPT TO CALL AGAIN.
--- NOTE | 2019-01-02 20:50 | NUR ---
RN CALLED AND HE CAME UP TO FLOOR. RN SHOWED CARDIAC RHYTHM STRIPS FROM THIS AFTERNOON & DISCUSSED PATIENT'S DIAGNOSIS, HISTORY, LABS, & VITALS. PT ASYMPTOMATIC. DISCUSSED CONVERSATION WITH . INSTRUCTED TO CANCEL CONSULT TO & TO CONSULT 'S GROUP. ALSO INSTRUCTED TO REORDER METOPROLOL 25 MG BID PER HOME SCHEDULE.
--- NOTE | 2019-01-02 20:55 | NUR ---
'S ANSWERING SERVICE CALLED AT THIS TIME. [employer] AND VIDEO EDITOR. INFORMATION & RETURN CALL BACK NUMBER LEFT WITH [employer]LECT[employer] TECH. RN REQUESTED RETURNE PHONE CALL.
--- NOTE | 2019-01-02 21:00 | NUR ---
CALLED RN BACK AT THIS TIME. DISCUSSED PATIENT HISTORY, CURRENT MEDICATIONS, RUNS OF VTACH THROUGHOUT AFTERNOON, AND NEW ORDERS RECEIVED FOR METOPROLOL 25 MG BID. STATES TO GIVE FIRST DOSE OF METOPROLOL TONIGHT & TO ORDER A BMP & MAGNESIUM LEVEL FOR NOW.
--- NOTE | 2019-01-02 21:10 | NUR ---
AT NURSES STATION. DISCUSSED CONVERSATION WITH . AWARE THAT BMP & MAGNESIUM ORDERED FOR TONIGHT. NO NEED FOR AM LABS PER . ALSO INSTRUCTED TO REVIEW CODE STATUS WISHES WITH PT.
[2019-01-02 21:32] LABS: CREATININE 1.55 mg/dL (0.70-1.30); POTASSIUM 4.3 mmol/L (3.5-5.1)
--- NOTE | 2019-01-02 22:16 | NUR ---
SPOKE TO PATIENT ABOUT CODE STATUS PER 'S REQUEST. RN EXPLAINED ALL LIFE SAVING MEASURES THAT WOULD BE TAKEN IN THE EVENT OF EMERGENCY. PATIENT WISHES TO REMAIN A FULL CODE.
--- NOTE | 2019-01-02 22:39 | NUR ---
NOTIFIED OF PT'S C/O "KIDNEY PAIN" RATED 5/10. NO TYLENOL OR PAIN MEDICATION ORDERED FOR PT AT THIS TIME. NEW ORDER RECEIVED FOR 1,000MG PO TYLENOL TID PRN.
--- NOTE | 2019-01-02 22:58 | NUR ---
PO TYLENOL ADMINISTERED PER PRN ORDER FOR C/O "KIDNEY PAIN" RATED 5/10. WILL MONITOR EFFECTIVENESS. CALL LIGHT LEFT IN REACH.
[2019-01-03] VITALS: BP 104/50
[2019-01-03 08:02] VITALS: BP 128/70
--- NOTE | 2019-01-03 08:50 | NUR ---
NOTIFIED DR DAWN OF CONSULT FOR KIDNEY PAIN.
[2019-01-03 09:36] LABS: BILIRUBIN NEGATIVE (NEGATIVE); BLOOD 2+ (NEGATIVE); CLARITY CLEAR (CLEAR); COLOR YELLOW (YELLOW); GLUCOSE TRACE (NEGATIVE); KETONE NEGATIVE (NEGATIVE); LEUKO ESTERASE 1+ (NEGATIVE); NITRITE NEGATIVE (NEGATIVE); SPECIFIC GRAVITY <= 1.005 (1.005-1.030); UROBILINOGEN 0.2 E.U./dl (0.2-1.0)
[2019-01-03 09:43] LABS: RBC 21-30 rbc/hpf (0-2)
--- NOTE | 2019-01-03 09:58 | NUR ---
PATIENT REURNED VIA WHEELCHAIR FROM ULTRASOUND.
--- NOTE | 2019-01-03 11:01 | NUR ---
DR LEYVA ROUNDED AND SEEN PT.
--- NOTE | 2019-01-03 11:37 | NUR ---
Upon discharge recommend patient to follow up for wound care in outpatient setting continue current wound care orders at discharging facility.
[2019-01-03 11:52] VITALS: BP 118/50
--- NOTE | 2019-01-03 12:45 | NUR ---
DR CISNEROS ROUNDED AND I NOTIFIED HIM THAT PT NO LONGER WANTED TO HAVE HIM FOR CARDIOLOGY. PT STATED HE "PREFERRED DR BRAXTON".
--- NOTE | 2019-01-03 12:45 | NUR ---
DR CISNEROS ROUNDED AND SEEN PT.
--- NOTE | 2019-01-03 13:01 | NUR ---
DRESSING CHANGE TO BILATERAL LOWER LEGS/ AND RIGHT FOREARM COMPLETED PER PHYSICIAN ORDER.
--- NOTE | 2019-01-03 13:20 | NUR ---
REINFORCED DRESSING APPLIED BY PODIATRY.PT TOLERATED WELL. VOICES NO OTHER NEEDS AT THIS TIME.
[2019-01-03 16:00] VITALS: BP 115/69
--- NOTE | 2019-01-03 17:56 | NUR ---
NOTIFIED DR BRAXTON PT WAS BEGINNING TO HAVE INTERMITTENT RUNS OF IRREGULARITY ON VT. SPOKE WITH HIM BASED ON WHAT I NOTICED ON SLAVE MONITOR IN [place]WAY BUT HAD NOT SEEN A STRIP YET. AWAITING STRIP FROM [employer] THAT I REQUESTED. PER DR BRAXTON I AM TO GIVE PM DOSE OF TOPROL 12.5 MG NOW AND IF THE PM SHIFT HAVE ANY MORE PROBLEMS THEY CAN CALL BACK.
--- NOTE | 2019-01-03 18:24 | NUR ---
NOTIFIED DR BRAXTON THAT PT STATES HE ONLY SEEN DR CISNEROS AT DR LEYVA'S OFFICE.UPON LOOKING BACK IN RECORDS THE LAST INVENTORY CONTROL SUPERVISOR AT [facility] IS DR GRULLON. SO ALL RECORDS WOULD BE WITH DR LEYVA OFFICE. RELEASE OF INFO WILL BE FAXED TO DR LEYVA'S OFFICE IN AM.
[2019-01-03 20:00] VITALS: BP 97/49
[2019-01-03 23:30] VITALS: BP 103/55; BP 130/55
--- NOTE | 2019-01-03 23:33 | NUR ---
NOTIFIED OF CHANGES TO MEDICATIONS MADE EARLIER TODAY & PATIENT HAVING MULTIPLE EPISODES OF NONSUSTAINED VTACH THIS EVENING. DISCUSSED 12.5 MG METOPROLOL WAS GIVEN AROUND 1800 DUE TO ORDERING 2200 DOSE TO BE GIVEN EARLY. AWARE THAT PT ASYMPTOMATIC. INSTRUCTED TO MONITOR AT THIS POINT IN TIME & CALL IF VTACH SUSTAINED OR PT BECOMES SYMPTOMATIC.
[2019-01-04 08:00] VITALS: BP 102/50
--- NOTE | 2019-01-04 09:00 | NUR ---
Electric Detector Operator in to see patient. He is sitting up on the edge of his bed without distress noted. Discussed short term SNF and home health care services and he denies any home needs at this time. When medically stable he will be discharged to home.
--- NOTE | 2019-01-04 11:15 | NUR ---
INFORMED CONSENT OBTAINED FOR LEXISCAN NUCLEAR STRESS TEST WITH DR. BRAXTON. RESTING EKG ATRIAL FIB RBBB WITH A RESTING HR OF 77 WITH BP OF 90/52. LUNGS DIMINISHED BS WITH SPO2 OF 95% WITH NASAL O2 AT 3L. PT COMPLETED A 1:00 LEXISCAN PROTOCOL RECEIVING LEXISCAN 0.4 MG IV OVER 10 SECONDS. ISOMETRIC HAND EXERCISES PERFORMED THROUGHOUT TESTING. IMMEDIATE RECOVERY HR OF 105 WITH BP OF 88/44. HAD NO CHEST PAIN AND DENIED ANY DISCOMFORTS. EKG NONDIAGNOSTIC WITH BBB. LAST RECOVERY HR OF 89 WITH BP OF 94/58. AWAITING SCANNING IN STABLE CONDITION.
[2019-01-04 13:20] VITALS: BP 102/58; BP 91/55
--- NOTE | 2019-01-04 13:30 | NUR ---
PULSE OX 79% ON 3L AFTER RETURNING FROM STRESS TEST AND CXR. OXYGEN INCREASED TO 4L AND RESPIRATORY PAGED FOR BREATHING TREATMENT. PULSE OX RETURNED TO 97% AFTER BREATHING TREATMENT.
--- NOTE | 2019-01-04 13:43 | NUR ---
C/O PAIN OF 7/10 TO BACK. DILAUDID GIVEN AT THIS TIME. WILL CONT TO MONITOR. CALL LIGHT IN REACH.
[2019-01-04 14:03] LABS: CREATININE 2.39 mg/dL (0.70-1.30); POTASSIUM 4.4 mmol/L (3.5-5.1)
--- NOTE | 2019-01-04 14:43 | NUR ---
IV DILAUDID EFF. WILL CONT TO MONITOR. CALL LIGHT IN REACH.
--- NOTE | 2019-01-04 14:55 | NUR ---
SUSYTEX CAMEJO [id number] Please refer to the physician's history and physical for past medical history, comorbid conditions, and allergies. Diagnosis: CELLULITIS COPD EXACERBATION South Score: 19,LOW OR NO RISK WOUND DESCRIPTIONS: (follow up visit) Wound Number: 1 Location of the wound: BETTE superior Type of wound: skin tear (scabbed) Thickness: Partial Size: 0.7cm x 0.3cm x 0.1cm Tunneling: none Undermining: none Sinus Tract: none Presence of Exudate: none Amount: none Color: Red Odor: None Periwound Skin Appearance: Normal Wound edges: approximated Pain (associated with wound): denied at time of assessment How does patient state this happened? patient states that he fell going into his son's garage. Wound Number: 2 Location of the wound: BETTE medial Type of wound: skin tear (scabbed) Thickness: Partial Size: 2.4cm x 0.5cm x 0.1cm Tunneling: none Undermining: none Sinus Tract: none Presence of Exudate: none Amount: none Color: Red Odor: None Periwound Skin Appearance: Normal Wound edges: approximated Pain (associated with wound): denied at time of assessment How does patient state this happened? patient states that he fell going into his son's garage. Wound Number: 3 Location of the wound: RFA lateral Type of wound: skin tear Thickness: Partial Size: 1cm x 0.5cm x 0.1cm Tunneling: none Undermining: none Sinus Tract: none Presence of Exudate: Sanguineous Amount: Light Color: Red Odor: None Periwound Skin Appearance: Normal Wound edges: approximated Pain (associated with wound): tender to touch How does patient state this happened? patient states that he fell going into his son's garage. Wound Number: 4 Location of the wound: RFA anterior Type of wound: skin tear Thickness: Partial Size: 3.4cm x 1.5cm x 0.1cm Tunneling: none Undermining: none Sinus Tract: none Presence of Exudate: Sanguineous Amount: Light Color: Red Odor: None Periwound Skin Appearance: Erythema Wound edges: approximated Pain (associated with wound): tender to touch How does patient state this happened? patient states that he fell going into his son's garage. Wound Number: 5 Location of the wound: left hand (resolved) Wound Number: 6 Location of the wound: right knee Type of wound: skin tear (scabbed) Thickness: Partial Size: 0.5cm x 0.1cm x 0.1cm Tunneling: none Undermining: none Sinus Tract: none Presence of Exudate: none Amount: none Color: Red Odor: None Periwound Skin Appearance: Normal Wound edges: approximated Pain (associated with wound): denied at time of assessment How does patient state this happened? patient states that he fell going into his son's garage. Wound Number: 7 Location of the wound: RLE Type of wound: animal bite Thickness: Partial Size: 1.0cm x 1.5cm x 0.1cm Tunneling: none Undermining: none Sinus Tract: none Presence of Exudate: Serous Amount: Light Color: Red Odor: None Periwound Skin Appearance: Erythema Wound edges: approximated Pain (associated with wound): tender to touch How does patient state this happened? patient states that his cat bit him in this area. Wound Number: 8 Location of the wound: LLE superior blister (resolved) Wound Number: 9 Location of the wound: LLE anterior blsiter Thickness: Partial Size: 1.8cm x 1.2cm x 0.1cm Tunneling: none Undermining: none Sinus Tract: none Presence of Exudate: Serous Amount: Light Color: Red Odor: None Periwound Skin Appearance: Erythema Wound edges: approximated Pain (associated with wound): tender to touch How does patient state this happened? patient unsure how this happened but states leg has been swollen for approximately one week. Wound #10 scatter scabs BUE intact at time of assessment. No drainage noted. No erythema noted. Surface the patient is resting on: Isoflex SKIN PREVENTION RECOMMENDATION: 1. Pressure redistribution support surface as appropriate 2. Elevate heels 3. Remove boots/TEDS every shift and reapply 4. Head of bed 30 degrees as tolerated 5. Assess nutrition and hydration 6. Manage moisture 7. Avoid the use of containment devices while in bed 8. Use absorptive products on surfaces limit layers of linens on bed 9. Turn and reposition every 1-2 hours in bed and every 1 hour in chair as tolerated 10. Weight shifts every 15 minutes while up in chair 11. Offloading with pillows or device to keep heels elevated off bed 12. Monitor skin at least every shift 13. Inspect under medical devices twice a day WOUND TREATMENT RECOMMENDATIONS: Continue current treatments drsesing change and skin tear orders.
[2019-01-04 16:00] VITALS: BP 94/57
--- NOTE | 2019-01-04 18:20 | NUR ---
PT GETS TACHYCARDIC WITH EXERTION. HR 130 AND QUICKLY RETURNS TO 70-80S WITH REST.
[2019-01-04 20:00] VITALS: BP 105/54
--- NOTE | 2019-01-04 20:00 | NUR ---
AAOX3 SITTING AT BEDSIDE. 02 INTACT. LUNGS VERY DIMINISHED BILATERALLY WITH SOME WHEEZES & RHONCHI NOTED. PT. HAS A MOIST PRODUCTIVE COUGH. STATES THAT HE HAD A BOWEL MOVEMENT YESTERDAY & IS VOIDING WITHOUT DIFFICULTY. BILATERAL LOWER EXTREMITIES WRAPPED WITH RAMA WRAPS; EDEMA NOTED ABOVE RAMA WRAPS. ENCOURAGED TO ELEVATE LEGS; VERBALIZED UNDERSTANDING. KPAD PER PT'S REQUEST TO BACK. BED IN LOW POSITION & CALL LIGHT WITHIN REACH.
[2019-01-05] VITALS: BP 112/55
--- NOTE | 2019-01-05 00:30 | NUR ---
RESTING IN BED WITH EYES CLOSED; AROUSES EASILY. 02 REMAINS INTACT; NO DISTRESS NOTED; CALL LIGHT WITHIN REACH.
--- NOTE | 2019-01-05 02:59 | NUR ---
MEDICATED WITH TYLENOL FOR C/O BACK PAIN.
--- NOTE | 2019-01-05 05:00 | NUR ---
STATES TYLENOL MINIMALLY EFFECTIVE.
--- NOTE | 2019-01-05 05:37 | NUR ---
MEDICATED WITH DILAUDID FOR C/O BACK PAIN RATED AN 8/10.
[2019-01-05 08:00] VITALS: BP 104/60
--- NOTE | 2019-01-05 08:30 | NUR ---
SPOKE TO DR REHMAN REGARDING PT CXR AND HIM REQUIRING MORE O2 TO MAINTAIN. HE GAVE ME NEW ORDERS.
--- NOTE | 2019-01-05 10:12 | NUR ---
I SPOKE TO DR HESS PER DR REHMAN'S REQUEST REGARDING CXR AND ANTIBIOTICS. SHE STATED SHE WILL TAKE A LOOK AT HIM AND SEE IF ANYTHING NEEDS ADJUSTED.
--- NOTE | 2019-01-05 10:35 | NUR ---
Spoke to Dr. Ross regarding possible LTAC. Dr. Ross states to contact cardiology for discharge clearance. Spoke to Dr. Acosta regarding discharge clearance from cardiology. Dr. Acosta states he needs to review patient's labs as patient's creatinine was rising and a couple of medications were discontinued.
[2019-01-05 11:16] LABS: BASO % 0.1 % (0.0-1.0); EOS # 0.1 10*3/uL (0.0-0.4); EOS % 0.7 % (1.0-4.0); HEMOGLOBIN 7.9 g/dl (14.0-18.0); LYMPH % 7.4 % (27.0-41.0); MEAN CELL VOLUME 96.5 fl (80.0-94.0); MEAN CORPUSCULAR HGB 30.5 pg (27.0-31.0); MEAN CORPUSCULAR HGB CONC 31.6 g/dl (33.0-37.0); MONO # 1.2 10*3/uL (0.1-1.0); MONO % 9.1 % (3.0-9.0); NEUT # 11.1 10*3/uL (2.3-7.9); NEUT % 81.9 % (47.0-73.0); PLATELET COUNT AUTOMATED 249 10*3/uL (130-400); RED BLOOD COUNT 2.59 10*6/uL (4.50-5.90); RED CELL DISTRI WIDTH 16.4 % (0-14.5); WHITE BLOOD COUNT 13.6 10*3/uL (4.8-10.8)
[2019-01-05 11:38] LABS: ALBUMIN 2.6 gm/dl (3.1-4.5); ALKALINE PHOSPHATASE 42 U/L (45-117); BUN 46 mg/dl (7-24); CHLORIDE 93 mmol/L (98-107); CREATININE 2.28 mg/dL (0.70-1.30); POTASSIUM 4.3 mmol/L (3.5-5.1); SGPT/ALT 10 U/L (12-78); SODIUM 134 mmol/L (136-145); TOTAL PROTEIN 6.7 gm/dL (6.4-8.2)
[2019-01-05 11:40] LABS: SGOT/AST < 3 IU/L (3-35)
[2019-01-05 12:00] VITALS: BP 121/57
[2019-01-05 16:00] VITALS: BP 105/64
[2019-01-05 18:24] LABS: URINE CREATININE RANDOM 40.2 mg/dL
[2019-01-05 20:00] VITALS: BP 124/48
--- NOTE | 2019-01-05 20:00 | NUR ---
SITTING UP AT BEDSIDE. AAOX3. 02 INTACT AT 4LPM VIA NASAL CANNULA. LUNGS VERY DIMINISHED; NO COUGH NOTED AT THIS TIME. PT. VOICES NO C/O PAIN OR DISCOMFORT. CALL LIGHT WITHIN REACH.
[2019-01-06] VITALS: BP 103/46
--- NOTE | 2019-01-06 02:00 | NUR ---
RESTING IN BED WITH EYES CLOSED. 02 INTACT; CALL LIGHT WITHIN REACH.
[2019-01-06 06:36] LABS: CREATININE 2.27 mg/dL (0.70-1.30); POTASSIUM 4.4 mmol/L (3.5-5.1)
[2019-01-06 08:00] VITALS: BP 123/64
[2019-01-06 12:00] VITALS: BP 118/54
[2019-01-06 16:00] VITALS: BP 105/72
--- NOTE | 2019-01-06 16:59 | NUR ---
DR. LEYVA AWARE OF BLOOD SUGAR. NOTIFIED DR. REHMAN. OK TO STOP STEROID.
[2019-01-06 20:00] VITALS: BP 151/72
--- NOTE | 2019-01-06 20:11 | NUR ---
PATIENT IS RESTING IN BED WITH EASY AND REGULAR RESPERS ON 4L VIA NC. ASSESSMENT IS COMPLETE WITH NO C/O OR S/S OF DISTRESS NOTED AT THIS TIME. BED IS LOW, LOCKED, AND CALL LIGHT IS WITHIN REACH, WILL CONTINUE TO MONITOR. SEE SHIFT ASSESSMENT.
--- NOTE | 2019-01-06 21:25 | NUR ---
2200 MEDICATIONS GIVEN AND PRN DILAUDID FOR C/O BACK PAIN RATING A 6/10. CALL LIGHT IS WITHIN REACH, WILL MONITOR EFFECT.
--- NOTE | 2019-01-06 22:32 | NUR ---
CONTACTED DR. LEYVA IN REGARDS TO BEDSIDE GLUCOSE OF 489. 12U AND SLIDING SCALE INSULIN ORDERED AT THIS TIME.
[2019-01-07] VITALS (12 sets, daily range): BP systolic 104–148; BP diastolic 52–76
--- NOTE | 2019-01-07 01:28 | NUR ---
24 HR. CHART CHECK COMPLETE.
[2019-01-07 06:18] LABS: MEAN CELL VOLUME 94.4 fl (80.0-94.0); MEAN CORPUSCULAR HGB 30.1 pg (27.0-31.0); MEAN CORPUSCULAR HGB CONC 31.9 g/dl (33.0-37.0); MEAN PLATELET VOLUME 9.8 fl (9.6-12.3); PLATELET COUNT AUTOMATED 226 10*3/uL (130-400); RED BLOOD COUNT 2.16 10*6/uL (4.50-5.90); RED CELL DISTRI WIDTH 16.1 % (0-14.5); WHITE BLOOD COUNT 9.1 10*3/uL (4.8-10.8)
[2019-01-07 06:21] LABS: HEMATOCRIT 20.4 % (42.0-52.0); HEMOGLOBIN 6.5 g/dl (14.0-18.0)
[2019-01-07 06:45] LABS: CREATININE 2.21 mg/dL (0.70-1.30); POTASSIUM 4.5 mmol/L (3.5-5.1)
[2019-01-07 06:55] LABS: BASOPHILS 1 % (0-1); PLATELET SUFFICIENCY NORMAL (NORMAL); TOTAL CELLS COUNTED 100 #CELLS
--- NOTE | 2019-01-07 08:30 | NUR ---
CALLED DR LEYVA TO REPORT H/H RESULTS FROM MORNING LABS. ORDERED 1 UNIT PRBC FOR TODAY, ONE FOR TOMORROW. ORDERED FECAL OCCULT AND JAHDI CONSULT.
--- NOTE | 2019-01-07 11:05 | NUR ---
ATTEMPTED TO CALL DR SHANKAR. NO ANSWER. LEFT VOICEMAIL TO PLEASE CALL ME BACK.
--- NOTE | 2019-01-07 11:50 | NUR ---
BLOOD TRANFUSION INITIATED. PATIENT SIGNED CONSENT, EDUCATED ON RISKS OF TRANFUSION REACTION. VITALS STABLE. NO S/S OF DISTRESS. CALL LIGHT IN REACH.
--- NOTE | 2019-01-07 13:52 | NUR ---
DR SHANKAR CONTACTED AND NOTIFIED OF CONSULT. NO NEW ORDERS RECEIVED AT THIS TIME.
--- NOTE | 2019-01-07 14:58 | NUR ---
BLOOD TRANFUSION COMPLETED. NO S/S OF DISTRESS. NO S/S OF REACTION. CALL LIGHT IN REACH.
--- NOTE | 2019-01-07 20:18 | NUR ---
PATIENT IS RESTING IN BED WITH EASY AND REGULAR RESPERS ON 3L O2 VIA NC. ASSESSMENT IS COMPLETE WITH NO S/S OF DISTRESS OR C/O NOTED AT THIS TIME. BED IS LOW, LOCKED, AND CALL LIGHT IS WITHIN REACH. IS PRESENT AT BEDSIDE AND WAS INQUIRING ABOUT PATIENTS CARE. PATIENT GAVE PERMISSION TO SPEAK TO . INFORMED OF RECENT LABS, CULTURES, STRESS TEST/ECHO, AND PLANS OF CARE AT THIS TIME. NO FURTHER QUESTIONS ASKED AT THIS TIME. BEDSIDE BLOOD GLUCOSE 265 AT THIS TIME. WILL CONTINUE TO MONITOR, SEE SHIFT ASSESSMENT.
[2019-01-08] VITALS (14 sets, daily range): BP systolic 110–126; BP diastolic 54–82
--- NOTE | 2019-01-08 03:47 | NUR ---
CARDIOLOGY ANSWERING SERVICE CONTACTED REGARDING 19 BEAT RUN OF V-TACH, MESSAGE LEFT.
[2019-01-08 06:14] LABS: BASO % 0.3 % (0.0-1.0); EOS # 0.3 10*3/uL (0.0-0.4); EOS % 4.5 % (1.0-4.0); HEMATOCRIT 22.6 % (42.0-52.0); HEMOGLOBIN 7.1 g/dl (14.0-18.0); LYMPH # 0.9 10*3/uL (1.3-4.4); LYMPH % 13.5 % (27.0-41.0); MEAN CELL VOLUME 94.2 fl (80.0-94.0); MEAN CORPUSCULAR HGB 29.6 pg (27.0-31.0); MEAN CORPUSCULAR HGB CONC 31.4 g/dl (33.0-37.0); MONO # 0.6 10*3/uL (0.1-1.0); MONO % 8.2 % (3.0-9.0); NEUT % 71.9 % (47.0-73.0); PLATELET COUNT AUTOMATED 280 10*3/uL (130-400); RED CELL DISTRI WIDTH 16.7 % (0-14.5)
[2019-01-08 06:35] LABS: CREATININE 1.63 mg/dL (0.70-1.30); POTASSIUM 4.1 mmol/L (3.5-5.1)
[2019-01-08 08:04] LABS: ACT PARTIAL THROMBO TIME 30.8 SECONDS (20.0-32.1); INTERNATIONAL NORM RATIO 1.1 (2.0-3.5)
--- NOTE | 2019-01-08 10:00 | NUR ---
Senior Integration Developer in to see patient. He is sitting up in his bedside chair without distress noted. Discussed short term SNF and he is agreeable. When provided with a list of facilities he chose [facility]. ornamental ironworker helper notified.
--- NOTE | 2019-01-08 10:45 | NUR ---
TRANSFORMATION LEAD received notice the patient is wanting to go to [place] for SNF. BETZAIDA is faxing new referral to [facility] for reveiw. -BETZAIDA Garcia
--- NOTE | 2019-01-08 12:35 | NUR ---
Discussed with patient LTAC vs SNF. He states "he doesn't want to go to an LTAC. I understand Dr. Ross is trying to take care of me but what is wrong with [facility]? They do a fine job out there." Notified Dr. Ross. canvas worker following.
--- NOTE | 2019-01-08 12:41 | NUR ---
Patient has been accepted to [facility]. Still waiting on PT/OT notes. Once medically stable will be able to go to [facility]. -BETZAIDA Garcia
--- NOTE | 2019-01-08 13:06 | NUR ---
NEWS ASSIGNMENT EDITOR completed HENs.-BETZAIDA Garcia
--- NOTE | 2019-01-08 13:46 | NUR ---
PHYSICAL THERAPY Physical therapy evaluation completed. Full details and evaluation to follow. Low complexity skilled PT evaluation performed (10352). PT will work on strength, transfers, gait, endurance, safety, and balance per POC. Recommend SNF upon discharge. Thank you, Dipti Cabrera, SPT Priyanka Phipps,PT,DPT.
--- NOTE | 2019-01-08 15:36 | NUR ---
Occupational Therapy evaluation completed on 5 with full eval to follow. Precautions include fall risk,both lower extremity edema, SOB with minimal exertion,oxygen dependency @ 3LPM, moderate complexity level 20712 via chart review, testing and evaluation. Recommend OT for ADL training,functional mobility and safety, energy conservation/work simplification education and adaptive equipment education and techniques and SNF to enable return home at independent level. Thank you. Nimco Bowman OTR/L
--- NOTE | 2019-01-08 19:29 | NUR ---
SPOKE WITH DR. LEYVA IN REGARDS TO BLOOD TRANSFUSION, ORDERED TO TRANSFUSE 2ND UNIT.
--- NOTE | 2019-01-08 19:55 | NUR ---
Informed consent obtained from patient for Blood transfussion by Dr. LEYVA. Patient identified by arm band. Vital signs recorded. Blood unit number verified by 2 R.N.'s. I.V. site satisfactory. Unit 2 started at a KVO rate with Normal Saline. RAZ PERRY
--- NOTE | 2019-01-08 22:28 | NUR ---
BLOOD TRANSFUSION COMPLETE, PATIENT TOLERATED WELL. NO REACTIONS NOTED.
[2019-01-09 00:10] VITALS: BP 122/65
[2019-01-09 06:41] LABS: HEMATOCRIT 26.3 % (42.0-52.0); HEMOGLOBIN 8.5 g/dl (14.0-18.0)
--- NOTE | 2019-01-09 07:26 | NUR ---
CORPORATE QUALITY ENGINEER faxed PT/OT Evals and updates to [facility]. -BETZAIDA Garcia
[2019-01-09 08:00] VITALS: BP 122/64
--- NOTE | 2019-01-09 08:28 | NUR ---
PHYSICAL THERAPY PT SITTING EOB UPON ARRIVAL. PT IDENTIFIED BY NAME AND . PT AGREED TO ALL PHYSICAL THERAPY TREATMENT THIS VIST. PT HAD NO REPORT OF PAIN. PT ON 3L O2. PT PERFORMED STS FROM EOB WITH USE OF BUE FOR ASSISTANCE. PT GAIT TRAINED 30FT X3 WITH USE OF ONE HAND RAIL AND SBA. PT STATED " MY FEET A NUMB AND AT TIMESI FEEL LIKE I COULD LOSE MY BALANCE." PT TAKES SLOW TURNS AND HAD SLIGHT LOB BUT WAS ABLE TO SELF RIGHT. PERFORMS STS TO EOB WITH USE OF BUE FOR ASSISTANCE. PT HAD NOT C/O OR NEEDS AT END FO SESSION. PT SITTING EOB WITH CALL LIGHT AT PTS SIDE AND TRAY INFRONT OF PT. RYAN LOZA PTA
--- NOTE | 2019-01-09 10:30 | NUR ---
Recreation Therapy Director in to see patient. No new needs or request at this time. When medically stable he will be discharged to [facility]. packing line worker following.
[2019-01-09 12:00] VITALS: BP 129/55
--- NOTE | 2019-01-09 12:21 | NUR ---
OT NOTE Attempted to see pt this P.M. for OT session and upon arrival pt was sitting upright on the EOB. Pt identified by name and and had complaints of feeling "like crap, tired, and weak." Pt stated "I just had a horrible nose bleed and lost so much blood so now I am weak. There is no way I can do therpay after all the blood I just lost." Will check back at a later time/date and continue with POC as able. ANABEL Victor/Mirella
--- NOTE | 2019-01-09 12:45 | NUR ---
PHYSICAL THERAPY Patient presented to therapy with report of just having a bad nosebleed and not feeling like doing therapy right now. Patient is not feeling well and therefore did not recieve therapy today. Will check back at a later date. GIBSON ADAMSON CUSTOMER SERVICE ANALYST
[2019-01-09 13:36] LABS: CREATININE 1.52 mg/dL (0.70-1.30); POTASSIUM 3.7 mmol/L (3.5-5.1)
[2019-01-09 16:00] VITALS: BP 113/58
--- NOTE | 2019-01-09 19:30 | NUR ---
PATIENT IS SITTING ON SIDE OF BED WITH EASY AND REGULAR RESPERS ON 3L VIA NC. ASSESSMENT IS COMPLETE WITH NO C/O OR S/S OF DISTRESS NOTED AT THIS TIME. BED IS LOW, LOCKED, AND CALL LIGHT IS WITHIN REACH. WILL CONTINUE TO MONITOR, SEE SHIFT ASSESSMENT.
[2019-01-09 20:00] VITALS: BP 107/52
[2019-01-10] VITALS (9 sets, daily range): BP systolic 103–128; BP diastolic 47–69
--- NOTE | 2019-01-10 05:38 | NUR ---
Upon discharge recommend patient to follow up for wound care in outpatient setting continue current wound care orders at discharging facility.
--- NOTE | 2019-01-10 07:04 | NUR ---
AWARE OF COLONOSCOPY TODAY.
--- NOTE | 2019-01-10 07:54 | NUR ---
BILLET STRAIGHTENER faxed updates to [facility]. -BETZAIDA Garcia
--- NOTE | 2019-01-10 08:00 | NUR ---
PHYSICAL THERAPY PT SITTING EOB UPON ARRIVAL. PT IDENTIFIED BY NAME AND . PT AGREED TO ALL PT TREATMENT THIS VISIT. PT SEEN 1:1 FOR 18MINS. PT HAD NO REPORT OF PAIN THIS VISIT. PT REPORTS " I AM GOING AT 0830 FOR COLONOSCOPY." PT PERFORMED THE FOLLOWING SEAT EXERCISES 20X EACH WITH VC'S AND DEMOSTRATION OF EACH EXERCISES. EACH EXERCISE DONE TO INCREASE LE STRENGTH. LONG ARCH QUAD, MARCH, TOE RAISE, HEEL RAISE, HIP ADDUCTION AND GLUT SET. PT STATED " COULD I GET A PAPER WITH THESE EXERCISES ON IT SO I CAN DO THESE ON MY OWN? SINCE I LIKE TO BE I MY CHAIR AND IN BE." EDUCATED PT THAT THIS BUTCHERETTE WOULD GET HIM A PRINT OUT OF THE EXERCISE AND BRING IT TO THIS PT AFTER HIS PROCEDURE. EDUCATED PT OF THE IMPORTANCE OF GETTING UP AND WALKING WELL. PT SITTING EOB AT END OF SESSION. RYAN LOZA BUTCHERETTE THAT HE
--- NOTE | 2019-01-10 08:00 | NUR ---
PATIENT HAS REFUSED RAMA WRAPS OR KIRLEX TO LEGS. EDUCATED.
--- NOTE | 2019-01-10 08:20 | NUR ---
OT NOTE Attempted to see pt this A.M. for OT session and upon arrival pt was supine in bed. Pt was requesting to rest at this time due to just finishing with physical therapy and increased fatigue. Will check back at a later time/date and continue with POC as able. ANABEL Victor/Mirella
--- NOTE | 2019-01-10 08:30 | NUR ---
Discussed discharge planning with Dr. Ross. Plans to discharge patient tomorrow to [facility] as patient is having an EGD today. straightedge worker notified.
--- NOTE | 2019-01-10 09:00 | NUR ---
Lasting Room Machine Operator in to see patient. No new needs or request at this time. When medically stable he will be discharged to [facility]. make up worker following.
[2019-01-10 10:39] LABS: HEMATOCRIT 27.5 % (42.0-52.0); HEMOGLOBIN 8.8 g/dl (14.0-18.0)
[2019-01-10 10:57] LABS: CREATININE 1.41 mg/dL (0.70-1.30); POTASSIUM 3.6 mmol/L (3.5-5.1)
--- NOTE | 2019-01-10 11:50 | NUR ---
PATIENT HAS REFUSED ENEMAS SEVERAL TIMES, EDUCATED MIGHT BE POOR PREP, HE STATES HIS BM'S ARE CLEAR LIQUID.
--- NOTE | 2019-01-10 13:00 | NUR ---
OT NOTE Pt was seen this P.M. 1:1 for 15 minute OT session. Upon arrival pt was supine in bed. Pt identified by name and and had no complaints at this time. Pt presented to therapy with continuous 3L-O2 via NC which he remained on throughout entire session. Pt transferred supine to sit EOB with SBA. Sit to stand completed from bed level with SBA. Functional mobility completed to the bathroom and back with CGA for safety. Then challenged pt's dynamic standing tolerance needed for increased I and enhanced safety in self care tasks. While weight shifting, crossing midline, and reaching over all planes pt was able to maintain G- standing balance. Pt then transferred back into bed sit to supine with SBA. There he was left with call light in hand, tray table in place, and phone in reach. Continue with rec D/C plan to SNF. ANABEL Victor/Mirella
--- NOTE | 2019-01-10 13:45 | NUR ---
PHYSICAL THERAPY PT SITTING EOB WITH FAMILY PRESENT UPON ARRIVAL. PT IDENTIFIED BY NAME AND . PT AGREED TO ALL PT TREATMENT THIS VIIST. REVIEWED SEATED HEP WITH PT AT EOB. PT HEP HAS LAQ, MARCHING, TOE RAISE, HEEL RAISE,GLUTE SET, HIP ADDUCATION.TRUNK FLEX, AND SEATED POSTURE. PT PERFORMED EACH EXERCISE ONE TIME EACH TO SHOW PT KNEW HOW TO PERFORMED EXERCISES WITH PROPER TECHNIQUE. PT EDUCATED TO DO EACH EXERCISES 20X TWICE A DAY SITTING EOB OR SITING IN CHAIR. PT SUPUNE IN BED WITH HEAD OF BED ELEVATED AT END OF SESSION WITH CALL LIGHT AT PTS SIDE. PT SEEN 1:1 FOR 14 MINS. RYAN LOZA PTA
--- NOTE | 2019-01-10 15:47 | NUR ---
PHYSICAL THERAPY CO-SIGN I approve of the Physical Therapy notes written above. YOLIE LINDSAY PT,DPT
--- NOTE | 2019-01-10 16:17 | NUR ---
PATIENT TAKEN TO SURGERY, CALLED AND LET HER KNOW.
--- NOTE | 2019-01-10 18:35 | NUR ---
PATIENT REMAINS IN OR.
--- NOTE | 2019-01-10 20:11 | NUR ---
1900 BACK FROM OR. VS DONE 1939 UP IN CHAIR. NO DISTRESS NOTED. NO C/O'S VOICED. HEP LOCK INTACT. 02 INTACT VIA NC.
--- NOTE | 2019-01-10 22:07 | NUR ---
RESTING IN BED WITH EYES CLOSED. APPEARS TO BE SLEEPING.
[2019-01-11] VITALS: BP 116/60
--- NOTE | 2019-01-11 04:06 | NUR ---
REMAINS SLEEPING WIHTOUT DISTRESS. 02 INTACT.
--- NOTE | 2019-01-11 06:06 | NUR ---
RESTING IN BED WITHOUT C/O'S. CONDITION GUARDED.
[2019-01-11 06:42] LABS: BASO # 0.1 10*3/uL (0.0-0.1); BASO % 0.6 % (0.0-1.0); EOS # 0.3 10*3/uL (0.0-0.4); HEMATOCRIT 25.7 % (42.0-52.0); HEMOGLOBIN 7.9 g/dl (14.0-18.0); LYMPH # 1.1 10*3/uL (1.3-4.4); LYMPH % 13.8 % (27.0-41.0); MEAN CELL VOLUME 96.3 fl (80.0-94.0); MEAN CORPUSCULAR HGB 29.6 pg (27.0-31.0); MEAN CORPUSCULAR HGB CONC 30.7 g/dl (33.0-37.0); MEAN PLATELET VOLUME 9.4 fl (9.6-12.3); MONO # 0.8 10*3/uL (0.1-1.0); MONO % 10.1 % (3.0-9.0); NEUT # 5.8 10*3/uL (2.3-7.9); NEUT % 69.6 % (47.0-73.0); PLATELET COUNT AUTOMATED 310 10*3/uL (130-400); RED BLOOD COUNT 2.67 10*6/uL (4.50-5.90); RED CELL DISTRI WIDTH 16.3 % (0-14.5); WHITE BLOOD COUNT 8.3 10*3/uL (4.8-10.8)
[2019-01-11 07:21] LABS: CHLORIDE 102 mmol/L (98-107); POTASSIUM 3.5 mmol/L (3.5-5.1); SODIUM 140 mmol/L (136-145)
[2019-01-11 07:29] LABS: BUN 14 mg/dl (7-24); CREATININE 1.22 mg/dL (0.70-1.30)
[2019-01-11 08:00] VITALS: BP 126/70
--- NOTE | 2019-01-11 09:15 | NUR ---
OT NOTE Pt was seen this A.M. 1:1 for 15 minute OT session. Upon arrival pt was upright in the bathroom sitting on commode. Pt identified by name and and had no complaints at this time. Pt presented to therapy with continous 3L-O2 via NC which he did not have on throughout session due to pt declining stating "I only wear that when I am in bed." Educated pt on importance of wearing his O2 and pt continued to decline. Pt completed toileting and toileting tasks with distant supervision. Pt then stood sink side while washing his hands with distant supervision. Functional mobility then completed around the room with CGA and back to the EOB. Throughout pt had two LOB both occuring during turns, educated pt on imortance of slowing down due to being impuslive and techniques for enhanced safety. There he was left sitting upright with call light in hand, tray table in place, and phone in reach. Continue with rec D/C plan to SNF. PRINCE Victor
--- NOTE | 2019-01-11 10:04 | NUR ---
PHYSICAL THERAPY PT IN RESTROOM UPON ARRIVAL. PT IDENTIFIED BY NAME AND . PT AGREED TO ALL PHYSCIAL THERAPY. PT SEE 1:1 FOR 14MINS. PT GAIT TRAINED 60FT X1 WITH SLIGHT UNSTEADINESS. PT IS SLOW MOVING WITH IMPULSIVE TENDANCIES.. PT HAS SLIGHT LOB DURING 360 TURN. PT PERFORMED STS TO EOB WITH SBA. PT HAS POOR SAFETY AWARNESS PT IS REFUSED TO WEAR O2 WHEN GAIT TRAINING. PT SITTING EOB WITH CALL LIGHT SITTING ON BED BESIDE PT, TRAY SITTING INFRONT OF PT AND 3L OF O2 VIA NASAL CANULA. PT REPORTS " I DON'T NEED NOTHING ELSE JUST TO GET OUT OF HERE." RYAN LOZA BOILER ERECTOR
[2019-01-11] MEDS ORDERED: Carafate1 GM PO (10:32)
[2019-01-11] MEDS ORDERED: PROTONIX40 MG PO (10:32)
[2019-01-11] MEDS ORDERED: METOPROLOL SUCC25 M2 PO (10:42)
--- NOTE | 2019-01-11 11:43 | NUR ---
PATIENT BEING DISCHARGED TO [facility]. REFUSED WOUND PICTURES WHEN WENT IN ROOM TO TAKE.
[2019-01-11] MEDS ORDERED: LASIX40 MG PO (11:49)
[2019-01-11] MEDS ORDERED: ALDACTONE25 MG PO (11:49)
--- NOTE | 2019-01-11 13:16 | NUR ---
NURSE TO NURSE REPORT NOT NEEDED PER THE HEAD NURSE AT [facility].
--- NOTE | 2019-01-12 07:35 | NUR ---
OCCUPATIONAL THERAPY CO-SIGN I approve of the Occupational Therapy notes written above. JAKY VARGAS OTR/Mirella
--- NOTE | 2019-01-12 07:40 | NUR ---
PHYSICAL THERAPY CO-SIGN I approve of the Physical Therapy notes written above. YOLIE LINDSAY PT,DPT
== END 2019-01-11 14:20 | disposition other institution (70) | DRG 377 ==
LOC: 5E 13:34
PROVIDERS: Internal Medicine; Internal Medicine Cardiovascular Disease; Internal Medicine Critical Care Medicine; Internal Medicine Gastroenterology; Internal Medicine Nephrology; ADMIT Internal Medicine
PROC: 4A02XM4 Measurement of Cardiac Total Activity, External Approach (ICD-10-PCS; 2019-01-04)
PROC: 3E073KZ Introduction of Other Diagnostic Substance into Coronary Artery, Percutaneous Approach (ICD-10-PCS; 2019-01-04)
PROC: 30233N1 Transfusion of Nonautologous Red Blood Cells into Peripheral Vein, Percutaneous Approach (ICD-10-PCS; 2019-01-07)
PROC: 0DBL8ZZ Excision of Transverse Colon, Via Natural or Artificial Opening Endoscopic (ICD-10-PCS; principal; 2019-01-10)
PROC: 0DBK8ZZ Excision of Ascending Colon, Via Natural or Artificial Opening Endoscopic (ICD-10-PCS; 2019-01-10)
PROC: 0DBM8ZZ Excision of Descending Colon, Via Natural or Artificial Opening Endoscopic (ICD-10-PCS; 2019-01-10)
DX: K92.2 Gastrointestinal hemorrhage, unspecified (principal); N17.0 Acute kidney failure with tubular necrosis; I50.43 Acute on chronic combined systolic (congestive) and diastolic (congestive) heart failure; J15.9 Unspecified bacterial pneumonia; E43 Unspecified severe protein-calorie malnutrition; I13.0 Hypertensive heart and chronic kidney disease with heart failure and stage 1 through stage 4 chronic kidney disease, or unspecified chronic kidney disease; L03.116 Cellulitis of left lower limb; L03.115 Cellulitis of right lower limb; J96.10 Chronic respiratory failure, unspecified whether with hypoxia or hypercapnia; M47.029 Vertebral artery compression syndromes, site unspecified; N18.3 Chronic kidney disease, stage 3 (moderate); N40.0 Benign prostatic hyperplasia without lower urinary tract symptoms; E11.22 Type 2 diabetes mellitus with diabetic chronic kidney disease; I25.10 Atherosclerotic heart disease of native coronary artery without angina pectoris; K63.5 Polyp of colon; G89.29 Other chronic pain; E11.21 Type 2 diabetes mellitus with diabetic nephropathy; M54.5 Low back pain; I48.2 Chronic atrial fibrillation; M48.061 Spinal stenosis, lumbar region without neurogenic claudication; Z99.81 Dependence on supplemental oxygen; Z95.1 Presence of aortocoronary bypass graft; Z90.49 Acquired absence of other specified parts of digestive tract; E11.65 Type 2 diabetes mellitus with hyperglycemia; D12.2 Benign neoplasm of ascending colon; D12.4 Benign neoplasm of descending colon; D12.3 Benign neoplasm of transverse colon; J43.9 Emphysema, unspecified; I45.10 Unspecified right bundle-branch block; Z68.22 Body mass index [BMI] 22.0-22.9, adult

== ENCOUNTER → 2020-09-15 | Outpatient (CLI) | payer MEDICARE, OTHER ==
[~2020-09-15] MED LIST changes: +ALDACTONE25 MG PO; +Carafate1 GM PO; +LASIX40 MG PO; +METOPROLOL SUCC25 M2 PO; +PROTONIX40 MG PO
== END | disposition home or self-care (01) ==
LOC: CT 09-05 11:00
PROVIDERS: ATTEND Internal Medicine Critical Care Medicine
DX: J47.9 Bronchiectasis, uncomplicated (principal); J43.9 Emphysema, unspecified; I77.819 Aortic ectasia, unspecified site; R91.8 Other nonspecific abnormal finding of lung field; J96.11 Chronic respiratory failure with hypoxia; D86.0 Sarcoidosis of lung; Z99.81 Dependence on supplemental oxygen; Z87.891 Personal history of nicotine dependence; Z90.49 Acquired absence of other specified parts of digestive tract

== ENCOUNTER → 2021-07-30 | Day surgery (SDC) | payer MEDICARE, OTHER ==
[~2021-07-30] VITALS: Ht 175.2 cm; Wt 79.4 kg
[~2021-07-30] MED LIST changes: +ASPIRIN CHEWABL81 MG PO; +CARAFATE1 G1 PO; +CEFEPIME2 GM/100 M IV; +ENOXAPARIN30 MG/0.2 SC; +GLIMEPIRIDE4 M1 PO; +HYDROCIL INSTA1 EACH PO; +Ipratropium Brom3 ML INH; +Lantus SC; +SOLU-MEDRO40 MG/1 ML IV; +VENT7GM INH; +ZYRTEC10 M2 PO
[2021-07-30 08:02] VITALS: BP 119/54
[2021-07-30 08:44] VITALS: BP 88/53
[2021-07-30 09:00] VITALS: BP 106/71
[2021-07-30 09:43] VITALS: BP 88/53
== END | disposition home or self-care (01) ==
LOC: SDC 07-27 10:15
PROVIDERS: ATTEND Surgery
DX: K62.5 Hemorrhage of anus and rectum (principal); D12.2 Benign neoplasm of ascending colon; K64.8 Other hemorrhoids; I10 Essential (primary) hypertension; E11.9 Type 2 diabetes mellitus without complications; J44.9 Chronic obstructive pulmonary disease, unspecified; I25.2 Old myocardial infarction; I25.10 Atherosclerotic heart disease of native coronary artery without angina pectoris; K21.9 Gastro-esophageal reflux disease without esophagitis; Z87.891 Personal history of nicotine dependence; Z95.1 Presence of aortocoronary bypass graft; Z79.899 Other long term (current) drug therapy; Z20.822 Contact with and (suspected) exposure to COVID-19

== ENCOUNTER → 2021-12-29 | Outpatient (CLI) | payer MEDICARE, OTHER ==
[2021-12-29 09:10] LABS: BASO # 0.1 10*3/uL (0.0-0.1); BASO % 0.8 % (0.0-1.0); EOS # 0.3 10*3/uL (0.0-0.4); EOS % 3.5 % (1.0-4.0); LYMPH # 1.9 10*3/uL (1.3-4.4); LYMPH % 21.7 % (27.0-41.0); MEAN CELL VOLUME 90.1 fl (80.0-94.0); MEAN CORPUSCULAR HGB 29.5 pg (27.0-31.0); MEAN CORPUSCULAR HGB CONC 32.7 g/dl (33.0-37.0); MONO # 0.9 10*3/uL (0.1-1.0); MONO % 10.6 % (3.0-9.0); NEUT # 5.4 10*3/uL (2.3-7.9); NEUT % 62.8 % (47.0-73.0); PLATELET COUNT AUTOMATED 222 10*3/uL (130-400); RED BLOOD COUNT 4.55 10*6/uL (4.50-5.90); RED CELL DISTRI WIDTH 15.9 % (0-14.5); WHITE BLOOD COUNT 8.6 10*3/uL (4.8-10.8)
[2021-12-29 09:30] LABS: POTASSIUM 4.4 mmol/L (3.5-5.1)
[2021-12-29 09:42] LABS: CREATININE 2.05 mg/dL (0.70-1.30); FREE T4 1.24 ng/dl (0.76-1.46); THYROID STIM HORMONE (HS) 1.48 uIU/ml (0.358-4.75); TOTAL PROTEIN 8.4 gm/dL (6.4-8.2)
[2021-12-29 10:19] LABS: VITAMIN D, 25-HYDROXY 82.2 ng/mL (30-100)
== END | disposition home or self-care (01) ==
LOC: LAB 08:53
PROVIDERS: ATTEND Internal Medicine
DX: E11.22 Type 2 diabetes mellitus with diabetic chronic kidney disease (principal); E78.2 Mixed hyperlipidemia; D51.9 Vitamin B12 deficiency anemia, unspecified; Z12.5 Encounter for screening for malignant neoplasm of prostate; E55.9 Vitamin D deficiency, unspecified; Z13.0 Encounter for screening for diseases of the blood and blood-forming organs and certain disorders involving the immune mechanism; Z13.21 Encounter for screening for nutritional disorder; Z13.1 Encounter for screening for diabetes mellitus; Z13.228 Encounter for screening for other metabolic disorders; Z13.29 Encounter for screening for other suspected endocrine disorder; Z13.6 Encounter for screening for cardiovascular disorders; Z13.89 Encounter for screening for other disorder; Z13.9 Encounter for screening, unspecified

== ENCOUNTER → 2022-07-28 | Outpatient (CLI) | payer MEDICARE, OTHER ==
[2022-07-28 13:23] LABS: BILIRUBIN Negative (Negative); BLOOD Negative (Negative); CLARITY Clear (Clear); COLOR Yellow (Yellow); GLUCOSE 3+ (Negative); KETONE Negative (Negative); LEUKO ESTERASE 1+ (Negative); NITRITE Negative (Negative); SPECIFIC GRAVITY 1.015 (1.001-1.030); UROBILINOGEN 0.2 E.U./dl (0.0-1.0)
[2022-07-28 13:55] LABS: BACTERIA 1+; YEAST TRACE
== END | disposition home or self-care (01) ==
LOC: LAB 12:42
PROVIDERS: ATTEND Internal Medicine
DX: R35.0 Frequency of micturition (principal); R30.0 Dysuria; Z79.899 Other long term (current) drug therapy

== ENCOUNTER → 2022-09-02 | Outpatient (CLI) | payer MEDICARE, OTHER ==
[2022-09-02 12:37] LABS: BASO # 0.1 10*3/uL (0.0-0.1); EOS # 0.2 10*3/uL (0.0-0.4); EOS % 2.7 % (1.0-4.0); HEMATOCRIT 45.4 % (42.0-52.0); LYMPH % 24.2 % (27.0-41.0); MEAN CELL VOLUME 92.8 fl (80.0-94.0); MEAN CORPUSCULAR HGB 28.8 pg (27.0-31.0); MEAN CORPUSCULAR HGB CONC 31.1 g/dl (33.0-37.0); MEAN PLATELET VOLUME 9.4 fl (9.6-12.3); MONO # 0.8 10*3/uL (0.1-1.0); NEUT % 61.2 % (47.0-73.0); PLATELET COUNT AUTOMATED 207 10*3/uL (130-400); RED BLOOD COUNT 4.89 10*6/uL (4.50-5.90); RED CELL DISTRI WIDTH 14.6 % (0-14.5); WHITE BLOOD COUNT 8.1 10*3/uL (4.8-10.8)
[2022-09-02 13:15] LABS: FREE T4 1.3 ng/dl (0.89-1.76); POTASSIUM 4.8 mmol/L (3.4-5.1); THYROID STIM HORMONE (HS) 1.67 uIU/ml (0.550-4.780); TOTAL PROTEIN 7.8 gm/dL (6.0-8.0)
[2022-09-02 13:17] LABS: VITAMIN D, 25-HYDROXY 64.8 ng/mL (30-100)
== END | disposition home or self-care (01) ==
LOC: LAB 11:56
PROVIDERS: ATTEND Internal Medicine
DX: Z12.5 Encounter for screening for malignant neoplasm of prostate (principal); Z13.0 Encounter for screening for diseases of the blood and blood-forming organs and certain disorders involving the immune mechanism; Z13.1 Encounter for screening for diabetes mellitus; Z13.21 Encounter for screening for nutritional disorder; Z13.220 Encounter for screening for lipoid disorders; Z13.228 Encounter for screening for other metabolic disorders; Z13.29 Encounter for screening for other suspected endocrine disorder; Z13.6 Encounter for screening for cardiovascular disorders; Z13.89 Encounter for screening for other disorder; Z13.9 Encounter for screening, unspecified; I10 Essential (primary) hypertension; E11.9 Type 2 diabetes mellitus without complications; E55.9 Vitamin D deficiency, unspecified; E03.9 Hypothyroidism, unspecified

== ENCOUNTER → 2022-12-01 | Outpatient (CLI) | payer MEDICARE, OTHER ==
[~2022-12-01] MED LIST changes: +COMBIVENT RESPIM4 GM INH; +D3-200050 MCG PO; +ELIQUIS2.5 M1 PO; +FLUTICASONE-SA1 EAC5 INH; +JANUVIA50 MG PO; +JARDIANCE25 MG PO; +K-TAB20 MEQ PO; +LEVOFLOXACIN750 M2 PO; +LIPITOR40 MG PO; +OZEMPIC SQ; +SINGULAIR10 M1 PO; +SPIRIVA RESPIMAT4 GM INH; +ZESTORETIC 10-1 EACH PO
== END | disposition home or self-care (01) ==
LOC: CARD 01:24
PROVIDERS: ATTEND Internal Medicine Cardiovascular Disease
DX: I44.7 Left bundle-branch block, unspecified (principal); I44.0 Atrioventricular block, first degree; I48.91 Unspecified atrial fibrillation; I25.10 Atherosclerotic heart disease of native coronary artery without angina pectoris; Q23.1 Congenital insufficiency of aortic valve; R94.31 Abnormal electrocardiogram [ECG] [EKG]; Z95.2 Presence of prosthetic heart valve

== ENCOUNTER → 2023-03-22 | Outpatient (CLI) | payer MEDICARE, OTHER ==
[2023-03-22 11:30] LABS: BASO # 0.1 10*3/uL (0.0-0.1); BASO % 0.8 % (0.0-1.0); EOS # 0.2 10*3/uL (0.0-0.4); EOS % 1.8 % (1.0-4.0); HEMATOCRIT 44.7 % (42.0-52.0); LYMPH # 1.6 10*3/uL (1.3-4.4); LYMPH % 17.7 % (27.0-41.0); MEAN CELL VOLUME 92.2 fl (80.0-94.0); MEAN CORPUSCULAR HGB 29.5 pg (27.0-31.0); MEAN PLATELET VOLUME 9.3 fl (9.6-12.3); MONO # 0.8 10*3/uL (0.1-1.0); MONO % 8.5 % (3.0-9.0); NEUT # 6.3 10*3/uL (2.3-7.9); NEUT % 70.4 % (47.0-73.0); PLATELET COUNT AUTOMATED 190 10*3/uL (130-400); RED BLOOD COUNT 4.85 10*6/uL (4.50-5.90); RED CELL DISTRI WIDTH 14.8 % (0-14.5); WHITE BLOOD COUNT 8.9 10*3/uL (4.8-10.8)
[2023-03-22 11:34] LABS: BILIRUBIN Negative (Negative); BLOOD Negative (Negative); CLARITY Clear (Clear); COLOR Yellow (Yellow); GLUCOSE 3+ (Negative); KETONE Negative (Negative); LEUKO ESTERASE 1+ (Negative); NITRITE Negative (Negative); SPECIFIC GRAVITY 1.025 (1.001-1.030); UROBILINOGEN 0.2 E.U./dl (0.0-1.0)
[2023-03-22 11:47] LABS: URINE CREATININE RANDOM 55.11 mg/dL
[2023-03-22 11:49] LABS: WBC 16-20 wbc/hpf (0-5)
[2023-03-22 12:03] LABS: POTASSIUM 4.1 mmol/L (3.4-5.1); TOTAL PROTEIN 7.9 gm/dL (6.0-8.0)
[2023-03-22 12:07] LABS: VITAMIN D, 25-HYDROXY 66.4 ng/mL (30-100)
== END | disposition home or self-care (01) ==
LOC: LAB 11:04
PROVIDERS: ATTEND Internal Medicine Nephrology
DX: I50.32 Chronic diastolic (congestive) heart failure (principal); N18.9 Chronic kidney disease, unspecified; N40.1 Benign prostatic hyperplasia with lower urinary tract symptoms; E55.9 Vitamin D deficiency, unspecified

== ENCOUNTER 2023-06-03 09:58 | Emergency (ER) | payer OTHER ==
[~2023-06-03] VITALS: Ht 172.7 cm; Wt 75.3 kg
[2023-06-03 10:04] VITALS: BP 147/93
[2023-06-03] MEDS ORDERED: AMOX-CLAV 875-1 EACH PO (11:05)
[2023-06-03] MEDS ORDERED: HYDROCODONE-AC1 EAC1 PO (11:05)
[2023-06-03] MEDS ORDERED: PREDNISONE20 M1 PO (11:05)
== END 2023-06-03 11:13 | disposition home or self-care (01) ==
LOC: ED 09:58
DX: M10.041 Idiopathic gout, right hand (principal); J44.9 Chronic obstructive pulmonary disease, unspecified; I48.91 Unspecified atrial fibrillation; I25.10 Atherosclerotic heart disease of native coronary artery without angina pectoris; I13.0 Hypertensive heart and chronic kidney disease with heart failure and stage 1 through stage 4 chronic kidney disease, or unspecified chronic kidney disease; N18.9 Chronic kidney disease, unspecified; I50.9 Heart failure, unspecified; Z91.048 Other nonmedicinal substance allergy status; Z79.899 Other long term (current) drug therapy

== ENCOUNTER 2024-12-31 12:02 | Emergency (ER) | payer OTHER ==
[~2024-12-31] VITALS: Ht 172.7 cm; Wt 69.9 kg
[~2024-12-31 12:02] MED LIST changes: +AMOX-CLAV 875-1 EACH PO; +HYDROCODONE-AC1 EAC1 PO; +PREDNISONE20 M1 PO
[2024-12-31 12:21] VITALS: BP 156/90
[2024-12-31 13:13] LABS: BASO # 0.1 10*3/uL (0.0-0.1); BASO % 0.7 % (0.0-1.0); EOS # 0.1 10*3/uL (0.0-0.4); EOS % 1.8 % (1.0-4.0); MEAN CELL VOLUME 89.4 fl (80.0-94.0); MEAN CORPUSCULAR HGB 28.7 pg (27.0-31.0); MEAN PLATELET VOLUME 9.1 fl (9.6-12.3); MONO # 0.8 10*3/uL (0.1-1.0); MONO % 12.1 % (3.0-9.0); NEUT # 4.4 10*3/uL (2.3-7.9); NEUT % 64.9 % (47.0-73.0); NUCLEATED RED BLOOD CELL 0.0 % (0.0-0.0); NUCLEATED RED BLOOD CELL 0.0 10*3/uL (0.0-0.0); PLATELET COUNT AUTOMATED 195 10*3/uL (130-400); RED CELL DISTRI WIDTH 14.9 % (0-14.5)
[2024-12-31 13:34] LABS: BUN 21.0 mg/dl (9-23)
[2024-12-31] MEDS ORDERED: PREDNISONE50 MG PO (13:36)
[2024-12-31] MEDS ORDERED: TRAMADOL HCL50 MG PO (13:46)
== END 2024-12-31 13:59 | disposition home or self-care (01) ==
LOC: ED 12:02
PROVIDERS: Internal Medicine
DX: M10.9 Gout, unspecified (principal); Z88.8 Allergy status to other drugs, medicaments and biological substances

== ENCOUNTER 2025-01-03 10:43 | Emergency (ER) | payer OTHER ==
[~2025-01-03] VITALS: Ht 172.7 cm; Wt 70.8 kg
[~2025-01-03 10:43] MED LIST changes: +PREDNISONE50 MG PO; +TRAMADOL HCL50 MG PO
[2025-01-03 10:53] VITALS: BP 138/83
== END 2025-01-03 11:54 | disposition home or self-care (01) ==
LOC: ED 10:43
DX: S91.011A Laceration without foreign body, right ankle, initial encounter (principal); J44.9 Chronic obstructive pulmonary disease, unspecified; I50.9 Heart failure, unspecified; I48.91 Unspecified atrial fibrillation; Z91.048 Other nonmedicinal substance allergy status; Z79.899 Other long term (current) drug therapy; W20.8XXA Other cause of strike by thrown, projected or falling object, initial encounter; Y93.89 Activity, other specified; Y92.89 Other specified places as the place of occurrence of the external cause; Y99.8 Other external cause status